=== PATIENT | male | born 1950 | race Caucasian/White ===

== ENCOUNTER 2020-11-06 10:21 | Outpatient (REF) | payer OTHER, SELFPAY ==
[2020-11-06 14:09] LABS: Alanine Aminotransferase 34 U/L (0-40); Albumin Level 4.3 g/dL (3.5-5.0); Alkaline Phosphatase 61 U/L (39-117); Anion Gap 15 (12-20); Aspartate Amino Transferase 24 U/L (5-37); Bilirubin Total 0.5 mg/dL (0.0-1.0); Blood Urea Nitrogen 15 mg/dL (9-16); Calcium 9.2 mg/dL (8.4-10.2); Carbon Dioxide 27 mmol/L (22-29); Chloride 98 mmol/L (96-108); Cholesterol 160 mg/dL; Estimated Glomerular Filt Rate > 60; Glucose Fasting 117 mg/dL (60-99); HDL Cholesterol 44 mg/dL; LDL Cholesterol Calculated 90 mg/dl; Sodium 135 mmol/L (135-145); Total Protein 6.6 g/dL (6.5-8.0); Triglycerides 132 mg/dL
== END 2020-11-06 10:22 | disposition home or self-care (01) ==
LOC: HO.WFDLDS 10:21
PROVIDERS: Visit Provider Internal Medicine
DX: E78.5 Hyperlipidemia, unspecified (principal); I10 Essential (primary) hypertension
CPT/HCPCS: 36415; 80053; 80061

== ENCOUNTER 2021-08-21 09:48 | Outpatient (REF) | payer OTHER, SELFPAY ==
[2021-08-21 11:57] LABS: Estimated Average Glucose 134 mg/dL; Hemoglobin A1c % 6.3 %
[2021-08-21 12:00] LABS: Hemoglobin 13.7 g/dl (14.0-18.0); Mean Corpuscular HGB Conc 33.4 g/dl (31.0-36.0); Mean Corpuscular Hemoglobin 28.6 pg (27.0-33.0); Mean Corpuscular Volume 85.6 fL (80.0-98.0); Platelet Count 205 X10*3/uL (160-400); Red Blood Count 4.79 X10*6/uL (4.60-5.80); Red Cell Distribution Width 12.8 % (11.0-16.0); White Blood Count 6.5 X10*3/uL (4.8-10.8)
[2021-08-21 12:25] LABS: Alanine Aminotransferase 25 U/L (0-40); Albumin Level 4.3 g/dL (3.5-5.0); Alkaline Phosphatase 70 U/L (39-117); Anion Gap 13 (12-20); Aspartate Amino Transferase 21 U/L (5-37); Bilirubin Total 0.6 mg/dL (0.0-1.0); Blood Urea Nitrogen 15 mg/dL (9-16); Calcium 9.2 mg/dL (8.4-10.2); Carbon Dioxide 28 mmol/L (22-29); Chloride 101 mmol/L (96-108); Cholesterol 161 mg/dL; Estimated Glomerular Filt Rate > 60; Glucose Fasting 140 mg/dL (60-99); HDL Cholesterol 42 mg/dL; LDL Cholesterol Calculated 90 mg/dl; Potassium 4.4 mmol/L (3.3-5.1); Sodium 138 mmol/L (135-145); Total Protein 6.6 g/dL (6.5-8.0); Triglycerides 148 mg/dL
[2021-08-21 12:34] LABS: Prostate Specific Antigen Scr 0.17 ng/mL (<0.05-4.0); TSH reflex Free T4 0.69 uIU/mL (0.32-4.0)
== END 2021-08-21 09:49 | disposition home or self-care (01) ==
LOC: HO.WFDLDS 09:48
PROVIDERS: Visit Provider Physician Assistant
DX: Z12.5 Encounter for screening for malignant neoplasm of prostate (principal); I10 Essential (primary) hypertension; E78.5 Hyperlipidemia, unspecified
CPT/HCPCS: 36415; 80053; 80061; 83036; 84153; 84443; 85027

== ENCOUNTER 2021-10-01 15:17 | Outpatient (REF) | payer OTHER, SELFPAY ==
[2021-10-01 15:41] LABS: Binax Internal Control QC Valid; Binax Now Covid-19 Ag Negative (Negative)
[2021-10-02 09:32] LABS: Lyme Abs Screen <0.90 index
== END 2021-10-01 15:18 | disposition home or self-care (01) ==
LOC: HO.HMGCLDS 15:17
PROVIDERS: PCP Physician Assistant; Visit Provider Physician Assistant
DX: Z20.822 Contact with and (suspected) exposure to COVID-19 (principal); R52 Pain, unspecified
CPT/HCPCS: 86617; 86618; 87811; C9803

== ENCOUNTER 2022-12-10 13:12 | Outpatient (AMB) | payer OTHER, SELFPAY ==
--- NOTE | 2022-12-10 13:20 | MHC.PC.OV ---
Vital Signs 12/10/22 13:32 12/10/22 13:33 Height 5 ft 7 in Weight 165 lb BMI 25.8 BP 204/90 H 134/80 Blood Pressure Location Lt brachial Rt brachial Position Sitting Sitting Respiration 17 Pulse 100 Pulse Source Pulse Oximeter Pulse Oximetry (%) 97 Oxygen Delivery Method Room Air Intake Visit Reasons: PE Intake Note: Patient is here today for a physical. Organizational Development Specialist Required: No Accompanied by: Self / Same As Patient Allergies No Known Allergies Allergy (Verified 12/10/22 13:35) Medication List - Last Reconciled 12/10/22 by Ranjan Dueñas PA-C alprazolam 0.5 mg PO TID diclofenac sodium 75 mg PO BID fluorouracil 5% 1 appl topical BID lisinopril 30 mg PO DAILY 90 days lorazepam 1 mg PO Q8H 30 days paroxetine HCl 20 mg PO QAM simvastatin 20 mg PO BEDTIME zolpidem 10 mg PO BEDTIME 30 days Tobacco use date assessed: 12/10/22 Fall risk assessment: No Falls in past year Last assessed Fall Risk: 12/10/22 Dental Screening Dental Screen Date: 12/10/22 Did you have a dental visit in the last 12 months?: No Did you have a dental problem in the last 6 months where you did not have access to dental care?: No Was dental information given to patient?: Patient declined HPI PE HPI Details Peter is a 72 y/o M here today for a annual physical.? Pmhx significant for HTN,? HLD, YIN. Concerns--> blood pressure discrepancy between arms. Elevated blood pressure readings noted and left arm as compared to right arm. He otherwise is asymptomatic without any swelling, pain or discoloration and left arm. --> advised on getting duplex arterial ultrasound of the left arm though patient would like to hold off on this for now. .. ?HTN: reports he has white coat HTN while in? the office, he does not regularly monitor his blood pressure at home. Blood pressure over right arm acceptable--> 130/80. ?.. ?Impaired glucose? metabolism: Patient has made drastic lifestyle modifications and has lost a significant amount of weight since last office visit. ?.. 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 ? Takes lorazepam and paxil which he reports is helping his? anxiety tremendously. ?.. ?HLD: Has been complaint with his Statin without? any side effects.? Most recent lipid panel acceptable with LDL below 100 .. Colon cancer screening: Cologuard done in 2021 was positive- to be referred to GI for colonoscopy .. Vaccines: Up-to-date with COVID vaccine, up-to-date with tetanus, pneumonia vaccines. Considering the shingles vaccine. [facility] Surgical History History of surgery History of thumb surgery Family History Father No problems noted. Mother No problems noted. Sister In good health Social History Housing: House Alcohol intake: never Patient Tobacco Use Status: Never used Tobacco e-Cigarette/Vaping Use: Never Used Second Hand Smoke Exposure: No service: Yes Current occupational status: retired Cognitive needs: No Hearing needs: No Vision needs: Yes Questionnaire PHQ-9 Over the last 2 weeks, how often have you been bothered by any of the following problems? 1. Little interest or pleasure in doing things: not at all 2. Feeling down, depressed, or hopeless: not at all 3. Trouble falling or staying asleep, or sleeping too much: not at all 4. Feeling tired or having little energy: not at all 5. Poor appetite or overeating: not at all 6. Feeling bad about yourself - or that you are a failure or have let yourself or your family down: not at all 7. Trouble concentrating on things, such as reading the newspaper or watching television: not at all 8. Moving or speaking so slowly that other people could have noticed. Or the opposite - being so fidgety or restless that you have been moving around a lot more than usual: not at all 9. Thoughts that you would be better off or of hurting yourself in some way: not at all Total score: 0 Depression Screening Interpretation: Negative Depression Screening Done: Yes 25518 - PHQ-9 Billing: Yes Source: Developed by Drs. Jc Myles, Alyson Savage, Teodoro Hummel and colleagues, with an educational aris from [employer] Thrive Questionnaire Date Thrive assessed: 12/10/22 I am a: Patient What is your living situation today?: I have a steady place to live Within the past 12 months, did the food you bought not last and you didn't have the money to get more?: Never true Within the past 12 months, did you worry whether your food would run out before you got money to buy more?: Never true Do you have trouble paying for medicines?: No Do you have trouble getting transportation to medical appointments?: No Do you have trouble paying your heating and electricity bill?: No Do you have trouble taking care of your child, family member or friend?: No Do you have trouble with day-to-day activities such as bathing, preparing meals, shopping, managing finances, etc.?: No Are you currently unemployed and looking for a job?: No Are you interested in more education?: No Please select the resources that you would like help with: None Currently or been in a relationship where the following occur: no concerns reported AUDIT C Alcohol Use Questionnaire (AUDIT-C) 1. How often do you have a drink containing alcohol?: Never 2. How many drinks containing alcohol do you have on a typical day when you are drinking?: 1 or 2 (none) 3. How often do you have six or more drinks on one occasion?: Never Total Score: 0 YIN-7 AMB Questionnaire YIN-7 Date YIN - 7 assessed: 12/10/22 Feeling nervous, anxious, or on edge: 0 = Not at all Not being able to stop or control worryin = Not at all Worrying too much about different things: 0 = Not at all Trouble relaxin = Not at all Being so restless that it is hard to sit still: 0 = Not at all Becoming easily annoyed or irritable: 0 = Not at all Feeling afraid as if something awful might happen: 0 = Not at all Total YIN-7 score (0-4 normal; 5-9 mild; 10-14 moderate; 15-21 severe): 0 Source: Developed by Drs. Jc Myles, Alyson Savage, Teodoro Hummel and colleagues, with an educational aris from [employer] Review of Systems Const Denies body aches, Denies chills, Denies excessive sweating, Denies fatigue, Denies fever(s) and Denies headache(s) Eyes Denies blurry vision ENT Denies dysphagia, Denies vertigo, Denies dizziness, Denies headache(s), Denies hearing loss and Denies tinnitus Card Denies chest pain, Denies chest pain with activity, Denies syncope, Denies irregular heart rhythm and Denies dyspnea Resp Denies chest congestion, Denies cough, Denies hemoptysis, Denies dyspnea and Denies wheezing GI Denies abdominal pain, Denies melena, Denies hematochezia, Denies coffee ground emesis, Denies dysphagia, Denies diarrhea, Denies nausea and Denies vomiting Denies difficulty urinating, Denies dysuria, Denies urinary frequency, Denies urinary hesitancy and Denies urinary urgency Musc Denies arthralgias, Denies limited range of motion, Denies muscle cramps and Denies muscle weakness Skin/Breast Denies rash and Denies skin ulcer Neuro Denies Abnormal speech present, Denies confusion, Denies vertigo, Denies dizziness, Denies syncope, Denies headache(s), Denies memory loss and Denies seizure-like activity Psych Denies anxiety, Denies confusion, Denies depression, Denies memory loss, Denies panic attacks and Denies paranoia Endo Denies excessive sweating, Denies fatigue, Denies flushing, Denies polydipsia and Denies polyuria Aller/Immun Denies wheezing Physical exam (Primary Care) Vital Signs: Last Vital Signs Pulse 100 12/10/22 13:32 Resp 17 12/10/22 13:32 BP 134/80 12/10/22 13:33 Pulse Ox 97 12/10/22 13:32 Oxygen Delivery Method Room Air 12/10/22 13:32 BMI result Body Mass Index 25.8 Tobacco/Smoking Status: Tobacco use Status Tobacco use date assessed 12/10/22 12/10/22 13:36 Patient Tobacco Use Status Never used Tobacco 12/10/22 13:22 e-Cigarette/Vaping Use Never Used 12/10/22 13:22 PHQ-9: PHQ-9 Score PHQ-9: Total score 0 12/10/22 13:36 Depression Screening Interpretation: Negative Thrive Assessment: Date of Thrive Assessment Date Thrive assessed 12/10/22 12/10/22 13:36 Currently or been in a relationship where the following occur: no concerns reported Const General: cooperative, comfortable, no acute distress, alert and awake; No confusion Orientation/consciousness: oriented to person, oriented to place, patient oriented x3 and No confusion HENMT Head: Yes normocephalic Ears: external ears normal and TM's normal bilaterally Face and sinus: No sinus tenderness Mouth: Normal oral and palatal mucosa present and tongue normal Teeth and gingiva: dentition normal and gingiva normal Throat: Yes posterior oropharynx normal, Yes tonsils normal and Yes uvula midline Eyes Conjunctivae: conjunctivae normal Sclerae: sclerae normal Pupils: Equal, round and reactive pupils present EOM: EOMs intact bilaterally Direct Ophthalmoscopy: No no photophobia Neck Neck: Yes no lymphadenopathy, No tender and Yes no JVD Thyroid: Thyroid normal Carotids: no bruits Chest Chest palpation & inspection: no tenderness Resp Effort & Inspection: normal respiratory effort, no audible wheezes, not labored and no stridor Auscultation: no crackles, no rales, no rhonchi and no wheezes Cardio Jugular venous distension: no JVD Rate: regular rate, not bradycardic and not tachycardic Rhythm: regular rhythm Bruits: no carotid bruits Peripheral pulses: Peripheral pulses 2+ throughout GI Inspection: Yes normal to inspection, No abdominal wall ecchymosis and No visible herniation Palpation (GI): Soft to palpation, nontender, no guarding, not rigid and No hepatosplenomegaly present Auscultation: normoactive bowel sounds General: Yes no CVA tenderness Back/Spine/Pelvis Back: no CVA tenderness and No back tenderness Cervical Spine: cervical ROM normal Thoracic/Lumbar Spine: thoracic and lumbar spine normal to inspection, straight leg raise negative bilaterally, No thoraco-lumbar ROM limited and No lumbar spinal tenderness Skin Lesions: no lesions Rashes: no rashes Wounds: no wounds Neuro General: oriented to person, oriented to place, patient oriented x3, CN's II-XI intact bilaterally and No confusion Cranial nerves: Yes Equal, round and reactive pupils present and Yes Normal accommodation reflex present Cognition (Neuro): normal cognition Speech: No Abnormal speech present Gait exam (Neuro): Normal gait present Motor exam (neuro): 5/5 motor strength present throughout Extrem Right upper extremity: full ROM; no cyanosis Left upper extremity: full ROM; no cyanosis Right lower extremity: no edema Left lower extremity: no edema Psych Appearance: grossly normal Mental Status: mental status grossly normal Affect: normal affect Attitude: cooperative Thought process: Normal thought process present Office Procedures Flu Questionnaire Does the patient have a severe egg allergy?: No Does the patient have severe life threatening allergies?: No Does the patient have a fever or illness today?: No Has the patient ever had Guillain-[place] Syndrome?: No Has the patient ever had any past reaction to a flu shot?: No Immunizations flu vacc [id number] 6mos up(PF) 60 mcg(15 mcgx4)/0.5 mL IM syringe Performing Provider: Ranjan Dueñas PA-C [facility] Administered by: FADI Mckenzie on 12/10/22 13:37 Dose Route Admin Location Dispensed Lot Number Expiration Date NDC Accountancy Professor 0.5 mL IM Left Deltoid 0.5 mL [id number] 09/07/23 12754-378-11 Detectent VIS Given Date VIS Provided VIS Publication Date 12/10/22 Single Vaccine 20 Eligibility Eligibility Date Funding Source Not [facility] Eligible 12/10/22 Private Assessment and Plan Assessment & Plan (1) Annual physical exam: Code(s): Z00.00 - Encounter for general adult medical examination without abnormal findings (2) HTN (hypertension): Code(s): I10 - Essential (primary) hypertension Qualifiers: Hypertension type: primary hypertension Qualified Code(s): I10 - Essential (primary) hypertension Plan: Patient's blood pressure elevated today in office in his left arm, right arm normal pressure. Advised we should due to flex arterial ultrasound his left upper extremity to evaluate for arterial stenosis though he would like to hold off on this for now. Patient asymptomatic without any headaches, chest discomfort or shortness of breath. (3) HLD (hyperlipidemia): Code(s): E78.5 - Hyperlipidemia, unspecified Qualifiers: Hyperlipidemia type: mixed hyperlipidemia Qualified Code(s): E78.2 - Mixed hyperlipidemia Plan: Patient's fasting lipids acceptable. Will continue him on current dose of statin therapy. Goal LDL to be below 130. (4) YIN (generalized anxiety disorder): Code(s): F41.1 - Generalized anxiety disorder Plan: Patient does suffer from moderate to severe anxiety. He reports his current medications helped tremendously on reducing his anxiety. We did discuss the habit-forming nature benzodiazepines and patient does understand. (5) Impaired fasting glucose: Code(s): R73.01 - Impaired fasting glucose Plan: Has made lifestyle modifications and has lost significant amount of weight since last office visit. Will recheck fasting blood sugar and A1c. (6) Positive colorectal cancer screening using Cologuard test: Code(s): R19.5 - Other fecal abnormalities Plan: Patient's Cologuard test positive in the fall of 2021. He is now willing to be referred to GI for colonoscopy. Orders: Orders AMB Hemoglobin A1c Today R73.01 - Impaired fasting glucose Lipid Panel Today E78.2 - Mixed hyperlipidemia Prostate Specific Antigen Scr Today I10 - Essential (primary) hypertension, Z12.5 - Encounter for screening for malignant neoplasm of prostate Influenza [id number] Immunization Today Z23 - Encounter for immunization Microalbumin, Random (w Creat) Today I10 - Essential (primary) hypertension Comprehensive [place]. Panel Fast Today I10 - Essential (primary) hypertension Complete Blood Count no Diff Today I10 - Essential (primary) hypertension Referrals Gastroenterology Referral R19.5 - Other fecal abnormalities Medications: Changed From fluorouracil 5% 1 appl topical BID H16.139 - Photokeratitis, unspecified eye, I10 - Essential (primary) hypertension To fluorouracil 5% 1 appl topical BID 30 days 40 grams 2RF H16.139 - Photokeratitis, unspecified eye, I10 - Essential (primary) hypertension Refilled simvastatin 20 mg PO BEDTIME 90 tabs 2RF E78.5 - Hyperlipidemia, unspecified Coding Level of Care Code Est Pt Prev Care >65y(01267) Diagnoses Annual physical exam Z00.00 Primary hypertension I10 Hypertension type: primary hypertension Mixed hyperlipidemia E78.2 Hyperlipidemia type: mixed hyperlipidemia YIN (generalized anxiety disorder) F41.1 Impaired fasting glucose R73.01 Positive colorectal cancer screening using Cologuard test R19.5
[2022-12-10 13:32] VITALS: BP 204/90; PULSE 100; RESP 17; O2SAT 97; BMI 25.8
[2022-12-10 13:33] VITALS: BP 134/80
== END 2022-12-10 13:58 | disposition home or self-care (01) ==
PROVIDERS: Visit Provider Physician Assistant
DX: Z00.00 Encounter for general adult medical examination without abnormal findings (principal); I10 Essential (primary) hypertension; E78.2 Mixed hyperlipidemia; Z23 Encounter for immunization; F41.1 Generalized anxiety disorder; R73.01 Impaired fasting glucose; R19.5 Other fecal abnormalities
CPT/HCPCS: 90471; 90686; 99397

== ENCOUNTER 2023-10-27 12:12 | Emergency (ER) | payer BC, SELFPAY ==
[2023-10-27 13:06] VITALS: BP 154/82; PULSE 63; RESP 16; TEMP 36.9; O2SAT 98; BMI 25.3
--- NOTE | 2023-10-27 13:07 | ED_ITS ---
HPI - Nausea/Vomiting/Diarrhea General Chief complaint: Nausea/Vomiting/Diarrhea Stated complaint: Sick for 2 Wks Unable to Eat Drink Related Data Previous Rx's ?Medication ?Instructions ?Recorded fluorouracil 5 % topical cream 1 appl topical BID 30 days #40 12/10/22 grams diclofenac sodium 75 mg 75 mg PO BID #60 tabs 02/02/23 tablet,delayed release triamcinolone acetonide 0.1 % 1 appl topical DAILY 30 days #80 03/05/23 topical cream grams paroxetine HCl 20 mg tablet 20 mg PO QAM #90 tabs 04/03/23 lisinopril 30 mg tablet 30 mg PO DAILY 90 days #90 tabs 09/19/23 simvastatin 20 mg tablet 20 mg PO BEDTIME #90 tabs 09/19/23 lorazepam 1 mg tablet 1 mg PO Q8H 30 days #90 tabs 10/24/23 zolpidem 10 mg tablet 10 mg PO BEDTIME 30 days #30 tabs 10/24/23 Allergies Allergy/AdvReac Type Severity Reaction Status Date / Time No Known Allergies Allergy Verified 10/27/23 13:11 [facility] Past Medical History Surgical History History of surgery History of thumb surgery Family History Family History Father No problems noted. Mother No problems noted. Sister In good health Social History Social History Housing: House Alcohol intake: never Patient Tobacco Use Status: Never used Tobacco e-Cigarette/Vaping Use: Never Used Second Hand Smoke Exposure: No Advance Directives: No Advance Directives Information Provided: No service: Yes Current occupational status: retired Cognitive needs: No Hearing needs: No Vision needs: Yes Physical Exam 2 Vital Signs: Vital Signs: Last Vital Signs Temp 98.4 F 10/27/23 13:06 Pulse 63 10/27/23 13:06 Resp 16 10/27/23 13:06 BP 154/82 H 10/27/23 13:06 Pulse Ox 98 10/27/23 13:06 O2 Del Method Room Air 10/27/23 13:06 BMI result Body Mass Index 25.3 Course Course Course Narrative: This is a Rapid Medical Examination (RME) performed by Fely Membreno PA-C in triage. Full HPI, ROS, assessment and treatment plan per primary provider in the Main ED. 73 yo male with history of HTN, HLD, anxiety, who presenting to the ER for evaluation of N/V/D, weakness, and decreased PO intake for the last 4 days. He was sick with URI symptoms 2 weeks ago. Had 2-3 episodes of diarrhea yesterday and vomited once yesterday. He was sent into the ER for IV electrolytes from the walk in center. Mildly hypertensive in triage. No pain just c/o weakness. Exam with awake alert elderly male, no distress. his abd is soft and nontender. lungs are clear w/ RRR. Stable to go back to [facility] until treatment room available. Plan: labs, COVID test Medical Decision Making Lab Data 10/27/23 13:44 10/27/23 13:44 Labs: Lab Results 10/27/23 Range/Units 13:44 WBC 9.6 (4.8-10.8) X10*3/uL RBC 4.81 (4.60-5.80) X10*6/uL Hgb 14.3 (14.0-18.0) g/dl Hct 40.8 L (42.0-52.0) % MCV 84.8 (80.0-98.0) fL MCH 29.7 (27.0-33.0) pg MCHC 35.0 (31.0-36.0) g/dl RDW 12.9 (11.0-16.0) % Plt Count 229 (160-400) X10*3/uL MPV 9.3 L (9.4-12.4) fL Immature Gran % (Auto) 0.6 H (0.0-0.4) % Neut % (Auto) 65.9 (45-73) % Lymph % (Auto) 18.8 L (20-40) % [place] % (Auto) 11.1 H (2-11) % Eos % (Auto) 3.0 (0-4) % Baso % (Auto) 0.6 (0-2) % Lymph # (Auto) 1.8 (1.2-4.9) X10*3/uL [place] # (Auto) 1.1 (0.1-1.2) X10*3/uL Eos # (Auto) 0.3 (0.0-0.4) X10*3/uL Baso # (Auto) 0.1 (0.0-0.2) X10*3/uL Abs Immat Gran (auto) 0.06 H (0.00-0.03) X10*3/uL Absolute Neuts (auto) 6.3 (2.0-8.3) x10*3/uL Absolute Nucleated RBC 0.000 (0.0-0.012) X10*3/uL Nucleated RBC % (auto) 0.0 (0.0-0.2) /100WBC Sodium 139 (135-145) mmol/L Potassium 4.4 (3.3-5.1) mmol/L Chloride 106 (96-108) mmol/L Carbon Dioxide 24 (22-29) mmol/L Anion Gap 13 (12-20) BUN 19 H (9-16) mg/dL Creatinine 1.53 H (0.5-1.4) mg/dL Estim Creat Clear Calc 42.2 Estimated GFR 45 Random Glucose 114 (60-115) mg/dL Calcium 10.2 D (8.4-10.2) mg/dL Magnesium 2.1 (1.6-2.6) mg/dL Total Bilirubin 0.7 (0.0-1.0) mg/dL Direct Bilirubin 0.3 (0.0-0.5) mg/dL AST 18 (5-37) U/L ALT 20 (0-40) U/L Alkaline Phosphatase 65 (39-117) U/L Total Protein 7.1 (6.5-8.0) g/dL Albumin 4.5 (3.5-5.0) g/dL Lipase 43 (8-78) U/L COVID-19 ([facility]) Negative (Negative) COVID-19 Clin Com See Note Discharge Plan Discharge Clinical Impression: Nausea & vomiting Qualifiers: Vomiting type: unspecified Qualified Code(s): R11.2 - Nausea with vomiting, unspecified Patient Disposition: Left W/O Completing Treatment Prescriptions: No Action diclofenac sodium 75 mg tablet,delayed release (DR/EC) 75 mg PO BID Qty: 60 3RF triamcinolone acetonide 0.1 % cream 1 appl topical DAILY 30 Days Qty: 80 1RF paroxetine HCl 20 mg tablet 20 mg PO QAM Qty: 90 3RF lisinopril 30 mg tablet 30 mg PO DAILY 90 Days Qty: 90 2RF simvastatin 20 mg tablet 20 mg PO BEDTIME Qty: 90 2RF zolpidem 10 mg tablet 10 mg PO BEDTIME 30 Days Qty: 30 3RF lorazepam 1 mg tablet 1 mg PO Q8H 30 Days Qty: 90 3RF Hold Instructions: Doctor's Order fluorouracil 5 % cream 1 appl topical BID 30 Days Qty: 40 2RF Discharge Date/Time: 10/27/23 20:45
[2023-10-27 13:48] LABS: MANUAL DIFF FLAG NO
[2023-10-27 13:50] LABS: Basophils Absolute Auto 0.1 X10*3/uL (0.0-0.2); Basophils Percent Auto 0.6 % (0-2); Eosinophils Absolute Auto 0.3 X10*3/uL (0.0-0.4); Hematocrit 40.8 % (42.0-52.0); Hemoglobin 14.3 g/dl (14.0-18.0); Imm Gran Abs Auto 0.06 X10*3/uL (0.00-0.03); Imm Gran Pct Auto 0.6 % (0.0-0.4); Lymphocytes Absolute Auto 1.8 X10*3/uL (1.2-4.9); Lymphocytes Percent Auto 18.8 % (20-40); Mean Corpuscular Hemoglobin 29.7 pg (27.0-33.0); Mean Corpuscular Volume 84.8 fL (80.0-98.0); Mean Platelet Volume 9.3 fL (9.4-12.4); Monocytes Absolute Auto 1.1 X10*3/uL (0.1-1.2); Monocytes Percent Auto 11.1 % (2-11); Neutrophils Absolute Auto 6.3 x10*3/uL (2.0-8.3); Neutrophils Percent Auto 65.9 % (45-73); Platelet Count 229 X10*3/uL (160-400); Red Blood Count 4.81 X10*6/uL (4.60-5.80); Red Cell Distribution Width 12.9 % (11.0-16.0); White Blood Count 9.6 X10*3/uL (4.8-10.8)
[2023-10-27 14:03] LABS: COVID-19 Test Negative (Negative); IDNOW Serial# 08D9AD1C
[2023-10-27 14:04] LABS: Alanine Aminotransferase 20 U/L (0-40); Albumin Level 4.5 g/dL (3.5-5.0); Alkaline Phosphatase 65 U/L (39-117); Anion Gap 13 (12-20); Aspartate Amino Transferase 18 U/L (5-37); Bilirubin Direct 0.3 mg/dL (0.0-0.5); Bilirubin Total 0.7 mg/dL (0.0-1.0); Blood Urea Nitrogen 19 mg/dL (9-16); Calcium 10.2 mg/dL (8.4-10.2); Carbon Dioxide 24 mmol/L (22-29); Chloride 106 mmol/L (96-108); Creatinine Clr Calc Pharmacy 42.2; Estimated Glomerular Filt Rate 45; Glucose Random 114 mg/dL (60-115); Lipase 43 U/L (8-78); Magnesium 2.1 mg/dL (1.6-2.6); Potassium 4.4 mmol/L (3.3-5.1); Sodium 139 mmol/L (135-145); Total Protein 7.1 g/dL (6.5-8.0)
== END 2023-10-27 20:45 | disposition left against medical advice (07) ==
LOC: HO.ED 20:29
PROVIDERS: Physician Assistant; Emergency Provider Emergency Medicine; PCP Physician Assistant
DX: R11.2 Nausea with vomiting, unspecified (principal); R53.1 Weakness; Z11.52 Encounter for screening for COVID-19; I10 Essential (primary) hypertension; E78.5 Hyperlipidemia, unspecified; Z53.21 Procedure and treatment not carried out due to patient leaving prior to being seen by health care provider; Z79.899 Other long term (current) drug therapy; Z79.02 Long term (current) use of antithrombotics/antiplatelets
CPT/HCPCS: 36415; 80048; 80076; 83690; 83735; 85025; 87635; 99281; 99283

== ENCOUNTER 2023-11-06 12:24 | Outpatient (REF) | payer SELFPAY ==
[2023-11-06 13:16] LABS: MANUAL DIFF FLAG NO
[2023-11-06 13:22] LABS: Basophils Percent Auto 0.7 % (0-2); Eosinophils Percent Auto 1.1 % (0-4); Hematocrit 41.5 % (42.0-52.0); Hemoglobin 13.6 g/dl (14.0-18.0); Imm Gran Abs Auto 0.04 X10*3/uL (0.00-0.03); Imm Gran Pct Auto 0.5 % (0.0-0.4); Lymphocytes Absolute Auto 1.4 X10*3/uL (1.2-4.9); Lymphocytes Percent Auto 17.1 % (20-40); Mean Corpuscular HGB Conc 32.8 g/dl (31.0-36.0); Mean Corpuscular Hemoglobin 28.6 pg (27.0-33.0); Mean Corpuscular Volume 87.4 fL (80.0-98.0); Mean Platelet Volume 9.9 fL (9.4-12.4); Monocytes Absolute Auto 0.7 X10*3/uL (0.1-1.2); Neutrophils Absolute Auto 5.8 x10*3/uL (2.0-8.3); Neutrophils Percent Auto 71.6 % (45-73); Platelet Count 280 X10*3/uL (160-400); Red Blood Count 4.75 X10*6/uL (4.60-5.80); Red Cell Distribution Width 13.2 % (11.0-16.0); White Blood Count 8.1 X10*3/uL (4.8-10.8)
[2023-11-06 13:23] LABS: Basophils Absolute Auto 0.1 X10*3/uL (0.0-0.2); Eosinophils Absolute Auto 0.1 X10*3/uL (0.0-0.4)
[2023-11-06 13:33] LABS: Alanine Aminotransferase 24 U/L (0-40); Albumin Level 4.5 g/dL (3.5-5.0); Alkaline Phosphatase 62 U/L (39-117); Anion Gap 16 (12-20); Aspartate Amino Transferase 20 U/L (5-37); Bilirubin Direct 0.2 mg/dL (0.0-0.5); Bilirubin Total 0.4 mg/dL (0.0-1.0); Blood Urea Nitrogen 14 mg/dL (9-16); Calcium 10.1 mg/dL (8.4-10.2); Carbon Dioxide 22 mmol/L (22-29); Chloride 107 mmol/L (96-108); Estimated Glomerular Filt Rate > 60; Glucose Random 112 mg/dL (60-115); Potassium 3.6 mmol/L (3.3-5.1); Sodium 141 mmol/L (135-145); Total Protein 7.2 g/dL (6.5-8.0)
[2023-11-06 14:05] LABS: Estimated Average Glucose 120 mg/dL; Hemoglobin A1c % 5.8 % (<6.0)
[2023-11-07 09:23] LABS: Hepatitis A Antibody IgG Nonreactive (Nonreactive)
[2023-11-07 09:34] LABS: HBS Num1 0.67 mIU/mL (0-7.99); HBc Num1 0.07 S/CO (0.00-0.79); HBsAGNum1 0.27 S/CO (0.00-0.99); HIV Num 1 11.97 S/CO (0.00-0.99); Hepatitis B Core Antibody Nonreactive (Nonreactive); Hepatitis B Surface Antigen Negative (Negative); ~HepC Num1 0.05 S/CO (0.00-0.79); ~Hepatitis B Surface Antibody NONREACTIVE (Nonreactive); ~Hepatitis C Antibody Nonreactive (Nonreactive)
[2023-11-07 10:50] LABS: HIV AB/AG Nonreactive (Nonreactive); HIV Num 2 0.05 S/CO; HIV Num 3 0.05 S/CO
[2023-11-08 14:59] LABS: Syphilis Screen Nonreactive (Nonreactive)
[2023-11-08 22:04] LABS: TS Negative Control Passed; TS Panel A 0; TS Panel B 0; TS Positive Control Passed; TSpotTB Negative (Negative)
== END 2023-11-06 12:25 | disposition home or self-care (01) ==
LOC: HO.HHCL 12:24
PROVIDERS: Visit Provider Family Medicine
DX: F11.20 Opioid dependence, uncomplicated (principal); Z13.1 Encounter for screening for diabetes mellitus
CPT/HCPCS: 36415; 80053; 82248; 83036; 85025; 86481; 86704; 86706; 86708; 86780; 86803; 87340; 87389

== ENCOUNTER 2023-12-25 13:17 | Outpatient (AMB) | payer BC, SELFPAY ==
--- NOTE | 2023-12-25 13:28 | MHC.PC.OV ---
Vital Signs 12/25/23 13:32 12/25/23 13:33 Height 5 ft 8 in Weight 161 lb 8 oz BMI 24.6 BP 92/66 152/74 H Blood Pressure Location Rt brachial Lt brachial Position Sitting Sitting Pulse 66 Pulse Source Pulse Oximeter Pulse Oximetry (%) 98 Oxygen Delivery Method Room Air Intake Visit Reasons: Physical Intake Note: Patient is here today for a physical. Claims Examiner Required: No Accompanied by: Self / Same As Patient Allergies No Known Allergies Allergy (Verified 12/25/23 13:36) Medication List - Last Reconciled 12/25/23 by Ranjan Dueñas PA-C buprenorphine-naloxone 2-0.5 mg 1 film sublingual BID diclofenac sodium 75 mg PO BID fluorouracil 5% 1 appl topical BID 30 days lisinopril 30 mg PO DAILY 90 days lorazepam 1 mg PO Q8H 30 days paroxetine HCl 20 mg PO QAM simvastatin 20 mg PO BEDTIME triamcinolone acetonide 0.1% 1 appl topical DAILY 30 days zolpidem 10 mg PO BEDTIME 30 days Tobacco use date assessed: 12/25/23 Fall risk assessment: No Falls in past year Last assessed Fall Risk: 12/25/23 Dental Screening Dental Screen Date: 12/25/23 Did you have a dental visit in the last 12 months?: Yes Did you have a dental problem in the last 6 months where you did not have access to dental care?: No Was dental information given to patient?: Patient has dentist HPI Physical HPI Details Peter is a 73 y/o M here today for a annual physical.? Pmhx significant for HTN,? HLD, YIN. Concerns--> he admits that he had become dependent on opiates pills from a friend. Now on Suboxone and getting stabilize on this medication. .. ?HTN: reports he has white coat HTN while in? the office, he does not regularly monitor his blood pressure at home. Blood pressure over right arm acceptable--> 130/80. blood pressure discrepancy between arms. Elevated blood pressure readings noted and left arm as compared to right arm. He otherwise is asymptomatic without any swelling, pain or discoloration and left arm. --> advised on getting duplex arterial ultrasound of the left arm though patient would like to hold off on this for now. ?.. ?Impaired glucose? metabolism: Patient has made drastic lifestyle modifications and has lost a significant amount of weight since last office visit. ?.. 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 ? Takes lorazepam and paxil which he reports is helping his? anxiety tremendously. ?.. ?HLD: Has been complaint with his Statin without? any side effects.? Most recent lipid panel acceptable with LDL below 100 .. Colon cancer screening: Cologuard done in 2021 was positive- he wants to wait to be referred to Gastroenterology .. Vaccines: Up-to-date with COVID vaccine, up-to-date with tetanus, pneumonia vaccines. Considering the shingles vaccine. Laboratory Tests 08/21/21 11/06/23 09:55 12:27 Hgb 13.7 L 13.6 L Hct 41.5 L Fasting Glucose 140 H Hemoglobin A1c % 6.3 5.8 PFSH Surgical History History of surgery History of thumb surgery Family History Father No problems noted. Mother No problems noted. Sister In good health Social History Housing: House Alcohol intake: never Patient Tobacco Use Status: Never used Tobacco e-Cigarette/Vaping Use: Never Used Second Hand Smoke Exposure: No service: Yes Current occupational status: retired Cognitive needs: No Hearing needs: No Vision needs: Yes Questionnaire PHQ-9 Over the last 2 weeks, how often have you been bothered by any of the following problems? 1. Little interest or pleasure in doing things: not at all 2. Feeling down, depressed, or hopeless: not at all 3. Trouble falling or staying asleep, or sleeping too much: not at all 4. Feeling tired or having little energy: not at all 5. Poor appetite or overeating: not at all 6. Feeling bad about yourself - or that you are a failure or have let yourself or your family down: not at all 7. Trouble concentrating on things, such as reading the newspaper or watching television: not at all 8. Moving or speaking so slowly that other people could have noticed. Or the opposite - being so fidgety or restless that you have been moving around a lot more than usual: not at all 9. Thoughts that you would be better off or of hurting yourself in some way: not at all Total score: 0 Depression Screening Interpretation: Negative Depression Screening Done: Yes 46264 - PHQ-9 Billing: Yes Source: Developed by Drs. Jc Myles, Alyson Savage, Teodoro Hummel and colleagues, with an educational aris from [employer]. Thrive Questionnaire Date Thrive assessed: 12/25/23 I am a: Patient What is your living situation today?: I have a steady place to live Within the past 12 months, did the food you bought not last and you didn't have the money to get more?: Never true Within the past 12 months, did you worry whether your food would run out before you got money to buy more?: Never true Do you have trouble paying for medicines?: No Do you have trouble getting transportation to medical appointments?: No Do you have trouble paying your heating and electricity bill?: No Do you have trouble taking care of your child, family member or friend?: No Do you have trouble with day-to-day activities such as bathing, preparing meals, shopping, managing finances, etc.?: No Are you currently unemployed and looking for a job?: No Are you interested in more education?: No Please select the resources that you would like help with: None Currently or been in a relationship where the following occur: No concerns reported THRIVE Score: 0 AUDIT C Alcohol Use Questionnaire (AUDIT-C) 1. How often do you have a drink containing alcohol?: Never 2. How many drinks containing alcohol do you have on a typical day when you are drinking?: 1 or 2 (none) 3. How often do you have six or more drinks on one occasion?: Never Total Score: 0 YIN-7 AMB Questionnaire YIN-7 Date YIN - 7 assessed: 12/25/23 Feeling nervous, anxious, or on edge: 0 = Not at all Not being able to stop or control worryin = Not at all Worrying too much about different things: 0 = Not at all Trouble relaxin = Not at all Being so restless that it is hard to sit still: 0 = Not at all Becoming easily annoyed or irritable: 0 = Not at all Feeling afraid as if something awful might happen: 0 = Not at all Total YIN-7 score (0-4 normal; 5-9 mild; 10-14 moderate; 15-21 severe): 0 Source: Developed by Drs. Jc Myles, Alyson Savage, Teodoro Hummel and colleagues, with an educational aris from [employer]. YIN-7 Assessment Billing YIN-7 Assessment Tool: YIN-7 Assessment 16035 Review of Systems Const Denies body aches, Denies chills, Denies excessive sweating, Denies fatigue, Denies fever(s) and Denies headache(s) Eyes Denies blurry vision ENT Denies dysphagia, Denies vertigo, Denies dizziness, Denies headache(s), Denies hearing loss and Denies tinnitus Card Denies chest pain, Denies chest pain with activity, Denies syncope, Denies irregular heart rhythm and Denies dyspnea Resp Denies chest congestion, Denies cough, Denies hemoptysis, Denies dyspnea and Denies wheezing GI Denies abdominal pain, Denies melena, Denies hematochezia, Denies coffee ground emesis, Denies dysphagia, Denies diarrhea, Denies nausea and Denies vomiting Denies difficulty urinating, Denies dysuria, Denies urinary frequency, Denies urinary hesitancy and Denies urinary urgency Musc Denies arthralgias, Denies limited range of motion, Denies muscle cramps and Denies muscle weakness Skin/Breast Denies rash and Denies skin ulcer Neuro Denies Abnormal speech present, Denies confusion, Denies vertigo, Denies dizziness, Denies syncope, Denies headache(s), Denies memory loss and Denies seizure-like activity Psych Denies anxiety, Denies confusion, Denies depression, Denies memory loss, Denies panic attacks and Denies paranoia Endo Denies excessive sweating, Denies fatigue, Denies flushing, Denies polydipsia and Denies polyuria Aller/Immun Denies wheezing Physical exam (Primary Care) Vital Signs: Last Vital Signs Pulse 66 12/25/23 13:32 BP 92/66 12/25/23 13:32 Pulse Ox 98 12/25/23 13:32 Oxygen Delivery Method Room Air 12/25/23 13:32 BMI result Body Mass Index 24.6 Tobacco/Smoking Status: Tobacco use Status Tobacco use date assessed 12/10/22 12/25/23 13:28 Patient Tobacco Use Status Never used Tobacco 12/25/23 13:28 e-Cigarette/Vaping Use Never Used 12/25/23 13:28 Depression Screening Interpretation: Negative Thrive Assessment: Date of Thrive Assessment Date Thrive assessed 12/10/22 12/25/23 13:28 Currently or been in a relationship where the following occur: No concerns reported Const General: cooperative, comfortable, no acute distress, alert and awake; No confusion Orientation/consciousness: oriented to person, oriented to place, patient oriented x3 and No confusion HENMT Head: Yes normocephalic Ears: external ears normal and TM's normal bilaterally Face and sinus: No sinus tenderness Mouth: Normal oral and palatal mucosa present and tongue normal Teeth and gingiva: dentition normal and gingiva normal Throat: Yes posterior oropharynx normal, Yes tonsils normal and Yes uvula midline Eyes Conjunctivae: conjunctivae normal Sclerae: sclerae normal Pupils: Equal, round and reactive pupils present EOM: EOMs intact bilaterally Direct Ophthalmoscopy: No no photophobia Neck Neck: Yes no lymphadenopathy, No tender and Yes no JVD Thyroid: Thyroid normal Carotids: no bruits Chest Chest palpation & inspection: no tenderness Resp Effort & Inspection: normal respiratory effort, no audible wheezes, not labored and no stridor Auscultation: no crackles, no rales, no rhonchi and no wheezes Cardio Jugular venous distension: no JVD Rate: regular rate, not bradycardic and not tachycardic Rhythm: regular rhythm Bruits: no carotid bruits Peripheral pulses: Peripheral pulses 2+ throughout GI Inspection: Yes normal to inspection, No abdominal wall ecchymosis and No visible herniation Palpation (GI): Soft to palpation, nontender, no guarding, not rigid and No hepatosplenomegaly present Auscultation: normoactive bowel sounds General: Yes no CVA tenderness Back/Spine/Pelvis Back: no CVA tenderness and No back tenderness Cervical Spine: cervical ROM normal Thoracic/Lumbar Spine: thoracic and lumbar spine normal to inspection, straight leg raise negative bilaterally, No thoraco-lumbar ROM limited and No lumbar spinal tenderness Skin Lesions: no lesions Rashes: no rashes Wounds: no wounds Neuro General: oriented to person, oriented to place, patient oriented x3, CN's II-XI intact bilaterally and No confusion Cranial nerves: Yes Equal, round and reactive pupils present and Yes Normal accommodation reflex present Cognition (Neuro): normal cognition Speech: No Abnormal speech present Gait exam (Neuro): Normal gait present Motor exam (neuro): 5/5 motor strength present throughout Extrem Right upper extremity: full ROM; no cyanosis Left upper extremity: full ROM; no cyanosis Right lower extremity: no edema Left lower extremity: no edema Psych Appearance: grossly normal Mental Status: mental status grossly normal Affect: normal affect Attitude: cooperative Thought process: Normal thought process present Office Procedures Flu Questionnaire Does the patient have a severe egg allergy?: No Immunizations Fluarix Triv [id number] (PF) 45 mcg (15 mcg x 3)/0.5 mL IM syringe Performing Provider: Ranjan Dueñas PA-C [facility] Documented (not given) by: FADI Mckenzie on 12/25/23 13:35 Reason Not Given: Received Previously Coding Level of Care Code Est Pt Prev Care >65y(85412) Diagnoses Annual physical exam Z00.00 Primary hypertension I10 Hypertension type: primary hypertension Mixed hyperlipidemia E78.2 Hyperlipidemia type: mixed hyperlipidemia Impaired fasting glucose R73.01 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 Substance use status: in remission Positive colorectal cancer screening using Cologuard test R19.5 Additional Codes YIN-7 Assessment Billing - YIN-7 Assessment Tool: YIN-7 Assessment 55909 ([id number]) Assessment & Plan Assessment & Plan (1) Annual physical exam: Code(s): Z00.00 - Encounter for general adult medical examination without abnormal findings Category: Medical Plan: As per HPI (2) HTN (hypertension): Code(s): I10 - Essential (primary) hypertension Category: Medical Qualifiers: Hypertension type: primary hypertension Qualified Code(s): I10 - Essential (primary) hypertension Plan: Patient's blood pressure on the low side today in office. Though on right arm seems to be slightly elevated. We did discuss perhaps doing a arterial ultrasound of the upper extremity evaluate for stenosis though patient declines. For now will continue on lisinopril 30 mg (3) HLD (hyperlipidemia): Code(s): E78.5 - Hyperlipidemia, unspecified Category: Medical Qualifiers: Hyperlipidemia type: mixed hyperlipidemia Qualified Code(s): E78.2 - Mixed hyperlipidemia Plan: Patient's most recent the panels have been stable. He continues with simvastatin 20 mg without any side effect. Goal LDL is to remain below 130 (4) Impaired fasting glucose: Code(s): R73.01 - Impaired fasting glucose Category: Medical Plan: Patient has a history of elevated fasting blood sugar. Most recent A1c of 5.8. He will continue on lifestyle and dietary modifications to reduce his fasting blood sugars (5) Opiate dependence: Code(s): F11.20 - Opioid dependence, uncomplicated Category: Medical Qualifiers: Substance use status: in remission Qualified Code(s): F11.21 - Opioid dependence, in remission Plan: Followed by a Suboxone clinic and is still getting stabilized on a regular dose of Suboxone (6) Positive colorectal cancer screening using Cologuard test: Code(s): R19.5 - Other fecal abnormalities Category: Medical Plan: Peter is aware of his positive Cologuard test. He was still trying to hold off on a colonoscopy she has been trying to stabilize medication. He will call for referral to gastroenterology for colonoscopy. Orders: Orders Influenza [id number] Immunization Today Z23 - Encounter for immunization Lipid Panel Today E78.2 - Mixed hyperlipidemia Hemoglobin A1c Today R73.01 - Impaired fasting glucose Comprehensive Tracy. Panel Fast Today R73.01 - Impaired fasting glucose Microalbumin, Random (w Creat) Today I10 - Essential (primary) hypertension Complete Blood Count no Diff Today E78.2 - Mixed hyperlipidemia Patient Instructions: Goal: Blood pressure to be below 33461, LDL to remain below 130 Barriers: Adherence to physical activity and healthy eating habits
[2023-12-25 13:32] VITALS: BP 92/66; PULSE 66; O2SAT 98; BMI 24.6
[2023-12-25 13:33] VITALS: BP 152/74
== END 2023-12-25 13:54 | disposition home or self-care (01) ==
PROVIDERS: PCP Physician Assistant; Visit Provider Physician Assistant
DX: Z00.00 Encounter for general adult medical examination without abnormal findings (principal); I10 Essential (primary) hypertension; E78.2 Mixed hyperlipidemia; R73.01 Impaired fasting glucose; F11.21 Opioid dependence, in remission; R19.5 Other fecal abnormalities

== ENCOUNTER → 2023-12-25 13:17 | Outpatient (BNVA) | payer BC, SELFPAY | PROVIDERS: PCP Physician Assistant; Visit Provider Physician Assistant | DX: Z00.00 Encounter for general adult medical examination without abnormal findings (principal); I10 Essential (primary) hypertension; E78.2 Mixed hyperlipidemia; R73.01 Impaired fasting glucose; R19.5 Other fecal abnormalities; F11.21 Opioid dependence, in remission; Z79.899 Other long term (current) drug therapy | CPT/HCPCS: 90471; 96127 ==

== ENCOUNTER 2024-04-26 12:49 | Outpatient (AMB) | payer BC, SELFPAY ==
--- OUTSIDE RECORDS SUMMARY | 2024-04-26 12:50 | XMS_ITS | Encounter Summary ---
Author Organization [employer] Address [address] [facility] [address] [place] [address] Care Team Providers Care Stone Engraver Name Role Phone Unavailable Primary Care Provider Unavailabl e Encounter Details Date Type Department Care Team (Latest Contact Info) Description 04/07/2024 Travel Social History Tobacco Use Types Packs/Day Years Used Date Smoking Tobacco: Never Assessed Sex and Gender Information Value Date Recorded Sex Assigned at Male 10/29/2023 10:50 AM EDT Legal Sex Male 10:43 AM EDT Gender Identity Male 10/29/2023 10:50 AM EDT Sexual Orientation Straight 10/29/2023 10 :50 AM EDT documented as of this encounter Plan of Treatment Upcoming Encounters Date Type Department Care Team (Late st Contact Info) Description 04/28/2024 10:00 AM EST Clinical Support [facility] [address] [place] [phone] Dennis Del Cid, YAEL [address] [place] [address] 05/19/2024 10:00 AM EDT Office Visit [facility] [address] [place] [phone] Viky Galvan MD [address] [place] [address] documented as of this encounter Visit Diagnoses Not on filedocumented in this encounter
--- OUTSIDE RECORDS SUMMARY | 2024-04-26 12:50 | XMS_ITS | Encounter Summary ---
Author Organization [employer] Address [address] [place] [address] [address] [place] [address] Care Team Providers Care Fire Fighter [employer] Name Role Phone Unavailable Primary Care Provider Unavailabl e Reason for Visit * Reason Onset Date Comments Med Refill 04/21/2024 Encounter Details Date Type Department Care Team (Late st Contact Info) Description 04/21/2024 Refill [facility] [address] [place] [phone] Dennis Del Cid, YAEL [address] [place] [phone] Uncomplicated opioid dependence (CMS/HCC) Social History Tobacco Use Types Packs/Day Years [...] Description 04/28/2024 10:00 AM EST Clinical Support [facility] [address] [place] [phone] Dennis Del Cid, RN [address] [place] [phone] 05/19/2024 10:00 AM EDT Office Visit [facility] [address] [place] [phone] Viky Galvan MD [address] [place] [phone] documented as of this encounter Visit Diagnoses Diagnosis Uncomplicated opioid dependence (CMS/HCC) documented in this encounter
--- OUTSIDE RECORDS SUMMARY | 2024-04-26 12:50 | XMS_ITS | Encounter Summary ---
Author Organization [employer] Address [address] [place] [address] [address] [place] [address] Care Team Providers Care Office Sweeper Name Role Phone Unavailable Primary Care Provider Unavailabl e Reason for Visit * Reason Onset Date Comments Med Refill 03/31/2024 Encounter Details Date Type Department Care Team (Late st Contact Info) Description 03/31/2024 Refill [facility] [address] [place] [phone] Dennis Del iCd, YAEL [address] [place] [phone] Uncomplicated opioid dependence (CMS/HCC) Social History Tobacco [...] Description 04/28/2024 10:00 AM EST Clinical Support [facility] [address] [place] [phone] Dennis Del Cid, RN [address] [place] [phone] 05/19/2024 10:00 AM EDT Office Visit [facility] [address] [place] [phone] Viky Galvan MD [address] [place] [phone] documented as of this encounter Visit Diagnoses Diagnosis Uncomplicated opioid dependence (CMS/HCC) documented in this encounter
--- OUTSIDE RECORDS SUMMARY | 2024-04-26 12:50 | XMS_ITS | Clinical Summary ---
Author Organization [employer] Address [address] [place] [address] Care Team Providers Care Flamer After Lasting Name Role Phone Unavailable Primary Care Provider Unavailabl e Allergies No known active allergies Medications naloxone (Narcan) 4 mg/0.1 mL nasal sprayIndicati ons:Opioid type dependence, continuous (CMS/HCC) Administer 1 spray (4 mg) into affected nostril(s) if needed for opioid reversal. May repeat every 2-3 minutes if needed, alternating nostrils, until medical assistance becomes available. 2 each 1 10/29/19 24 025 Active dicyclomine (Bentyl) 20 MG tablet Take 1 tablet by mouth every 6 hours as needed for abdominal pain 20 tablet 10/29/19 24 Active ondansetron (Zofran) 4 MG tablet Take 1 tablet (4 mg) by mouth every 8 (eight) hours if needed for nausea or vomiting. 30 tablet 10/29/19 24 Active lisinopril 30 MG tablet Take 30 mg by mouth Once per day. 09/08/19 24 Active fluorouracil (Efudex) 5 % cream 1 APPL TOPICALLY 2 TIMES A DAY FOR 30 DAYS 03/05/20 23 Active LORazepam (Ativan) 1 MG tablet TAKE 1 TABLET BY MOUTH EVERY 8 HOURS FOR 30 DAYS Active PARoxetine (Paxil) 20 MG tablet Take 20 mg by mouth in the morning. Active simvastatin (Zocor) 20 MG tablet Take 20 mg by mouth at bedtime. Active zolpidem (Ambien) 10 MG tablet Take 10 mg by mouth at bedtime. Active buprenorphine -naloxone (Suboxone) 2-0.5 MG per sublingual filmIndicatio ns:Uncomplica priscilla opioid dependence (CMS/HCC) Place 1 Film under the tongue 2 times daily for 21 days. 42 Film 04/21/19 25 025 Active buprenorphine -naloxone (Suboxone) 2-0.5 MG per sublingual filmIndicatio ns:Uncomplica priscilla opioid dependence (CMS/HCC) Place 1 Film under the tongue 2 times daily for 21 days. 42 Film 02/25/20 24 025 Discontinued(Re order (will not trigger notification to Pharmacy)) buprenorphine -naloxone (Suboxone) 2-0.5 MG per sublingual filmIndicatio ns:Uncomplica priscilla opioid dependence (CMS/HCC) Place 1 Film under the tongue 2 times daily for 21 days. 42 Film 04/01/19 25 025 Discontinued(Re order (will not trigger notification to Pharmacy)) Active Problems Problem Noted Date Diagnosed Date Opioid dependence 10/29/2023 Assessment & Plan (04/07/2024 5:13 AM EST): - stage of change: early remission / maintenance - Utox review: pos opi on 10/29/23 intake; pos bup and bzd since then - Overdose risk: intermediate to high. He uses alone, takes BZD, has PTSD, and age. - Continue current recovery support. Met with disaster recovery analyst, Al. - Continue current recovery effort. - Reviewed harm reduction and overdose prevention. Assessment & Plan (02/25/2024 5:58 AM EST): - stage of change: early remission / maintenance - Utox review: pos opi on 10/29/23 intake; pos bup and bzd since then - Overdose risk: intermediate to high. He uses alone, takes BZD, has PTSD, and age. - Continue current recovery support. Met with disaster recovery analyst, Al. - Continue current recovery effort. - Reviewed harm reduction and overdose prevention. - Induction on 10/29/23. Started with high dose, and developed adverse reaction. [place] better with lower dose, 4/1 mg daily. Assessment & Plan (02/11/2024 10:41 AM EST): - stage of change: action -> early remission / maintenance - Utox review: pos opi on 10/29/23 intake; pos bup and bzd since then - Overdose risk: intermediate to high. He uses alone, takes BZD, has PTSD, and age. - Continue current recovery support. Met with disaster recovery analyst, Al. - Continue current recovery effort. - Reviewed harm reduction and overdose prevention. - Induction on 10/29/23. Started with high dose, and developed adverse reaction. [place] better with lower dose, 4/1 mg daily. Assessment & Plan (01/07/2024 5:13 AM EDT): - stage of change: action -> early remission / maintenance - Utox review: pos opi on 10/29/23 intake; pos bup and bzd since then - Overdose risk: intermediate to high. He uses alone, takes BZD, has PTSD, and age. - Continue current recovery support. Met with disaster recovery analyst, Al. - Continue current recovery effort. - Reviewed harm reduction and overdose prevention. - Induction on 10/29/23. Started with high dose, and developed adverse reaction. [place] better with lower dose, 4/1 mg daily. Assessment & Plan (12/17/2023 11:24 AM EDT): - stage of change: action -> early remission / maintenance - Utox review: pos opi on 10/29/23 intake; pos bup and bzd since then - Overdose risk: intermediate to high. He uses alone, takes BZD, has PTSD, and age. - Continue current recovery support. Met with disaster recovery analyst, Al. - Continue current recovery effort. - Reviewed harm reduction and overdose prevention. - Induction on 10/29/23. Started with high dose, and developed adverse reaction. [place] better with lower dose, 4/1 mg daily. Assessment & Plan (11/26/2023 5:59 AM EDT): - stage of change: action - Utox review: - Overdose risk: intermediate to high. He uses alone, takes BZD, has PTSD, and age. - Continue current recovery support. Met with disaster recovery analyst, Al. - Continue current recovery effort. - Reviewed harm reduction and overdose prevention. - Induction on 10/29/23. Started with high dose, and developed adverse reaction. [place] better with lower dose, 4/1 mg daily. Assessment & Plan (10/29/2023 1:11 PM EDT): - stage of change: action - Utox review: - Overdose risk: intermediate to high. He uses alone, takes BZD, has PTSD, and age. - Continue current recovery support. Met with disaster recovery analystJoe, today. - Continue current recovery effort. - Reviewed harm reduction and overdose prevention. - Induction instruction for Day#1. 2 mg q2h up to 24 mg / day. Day#2 8 mg q8- 12h, up to 24 mg / day. - Rx Medications for withdrawal symptoms PTSD (post-traumatic stress disorder) 10/29/2023 Assessment & Plan (10/29/2023 1:07 PM EDT): - continue judicious use of lorazepam - discussed about concurrent use of bup and bzd; patient is aware Anxiety 10/29/2023 Assessment & Plan (10/29/2023 1:06 PM EDT): - continue paroxetine as prescribed by PCP Insomnia 10/29/2023 Assessment & Plan (10/29/2023 1:06 PM EDT): - continue judicious use of zolpidem Hypertension 10/29/2023 Assessment & Plan (10/29/2023 1:06 PM EDT): - continue lisinopril as prescribed by PCP Dyslipidemia 10/29/2023 Assessment & Plan (10/29/2023 1:05 PM EDT): - continue simvastatin as prescribed by PCP Encounters Date Type Department Care Team Description 04/21/2024 Refill [facility] [address] [place] [address] Dennis Del Cid RN Uncomplicated opioid dependence (CMS/HCC) 04/07/2024 10:30 AM EST Office Visit [facility] [address] [place] [address] Viky Galvan MD Uncomplicated opioid dependence (CMS/HCC) (Primary Dx) 04/07/2024 Travel 03/31/[address] [address] Dennis Del Cid RN Uncomplicated opioid dependence (CMS/HCC) 03/17/2024 9:45 AM EST Clinical Support [address] [address] Dennis Del Cid RN Uncomplicated opioid dependence (CMS/HCC) (Primary Dx) 03/17/2024 Travel 02/25/2024 10:00 AM EST Office Visit [address] [address] Viky Galvan MD Uncomplicated opioid dependence ([facility]/HCC) (Primary Dx) 02/25/[address] [address] Corina Muller RN Uncomplicated opioid dependence ([facility]/HCC) 02/25/2024 Travel 02/24/[address] [address] Bonnie Hernández, VOLUNTEER PATIENT REPRESENTATIVE insurance 02/18/[address] [address] Dennis Del Cid RN Uncomplicated opioid dependence ([facility]/HCC) 02/11/2024 10:15 AM EST Office Visit [address] [address] Viky Galvan MD Uncomplicated opioid dependence (CMS/HCC) (Primary Dx) 02/11/2024 Travel 02/02/2024 Refill [facility] [address] [place] [address] Dennis Del Cid RN Uncomplicated opioid dependence ([facility]/HCC) 01/28/2024 10:00 AM EST Clinical Support [address] [address] Corina Muller RN Uncomplicated opioid dependence (CMS/HCC) (Primary Dx) 01/28/2024 Travel from Last 3 Months Social History Tobacco Use Types Packs/Day Years Used Date Smoking Tobacco: Never Assessed Sex and Gender Information Value Date Recorded Sex Assigned at Male 10/29/2023 10:50 AM EDT Legal Sex Male 10:43 AM EDT Gender Identity Male 10/29/2023 10:50 AM EDT Sexual Orientation Straight 10/29/2023 10 :50 AM EDT Plan of Treatment Upcoming Encounters Date Type Department Care Team (Late st Contact Info) Description 04/28/2024 10:00 AM EST Clinical Support [facility] [address] [place] [phone] Dennis Del Cid, RN [address] [place] [address] 05/19/2024 10:00 AM EDT Office Visit [facility] [address] [place] [phone] Viky Galvan MD [address] [place] [address] Health Maintenance Due Date Last Done Comments CT Colonography 1951 Colonoscopy 1951 Depression Screening 1951 FIT 1951 FOBT 1951 Lipid Panel 1951 SDOH Screening 1950 Sigmoidoscopy 1951 Alcohol/Substance Use Screening 1963 Tobacco Screening 1963 Zoster Vaccines (1 of 2) 06/05/2001 DTaP/Tdap/Td Vaccines (1 - Tdap) 11/10/2020 11/09/2020 Diabetes: Hemoglobin A1C 11/05/2024 11/06/2023 Colorectal Cancer Screening 12/29/2024 FIT DNA/Cologuard 12/29/2024 12/29/2021, 09/17/2018 RSV Patients and Patients Aged 60 years or older (1 - 1-dose 75+ series) 06/05/2026 Pneumococcal Vaccine: 50+ Years Completed 03/12/2018, 12/01/2014 Hepatitis C Screening Completed 11/06/2023 COVID-19 Vaccine Completed 11/15/2023, 06/2022, 12/03/2021, Additional history exists Influenza Vaccine Completed 11/15/2023, , 12/03/2021, Additional history exists HIB Vaccines Aged Out No longer eligi ble based on patient's age to complete this topic HPV Vaccines Aged Out No longer eligi ble based on patient's age to complete this topic Hepatitis A Vaccines Aged Out No long er eligible based on patient's age to complete this topic Hepatitis B Vaccines Aged Out No long er eligible based on patient's age to complete this topic IPV Vaccines Aged Out No longer eligi ble based on patient's age to complete this topic Meningococcal Vaccine Aged Out No joan cira eligible based on patient's age to complete this topic RSV under 20 months Aged Out No longe r eligible based on patient's age to complete this topic Rotavirus Vaccines Aged Out No longer eligible based on patient's age to complete this topic Procedures Procedure Name Priority Date/Time Associated Diagnosis Comments POCT AJAY-14 URINE DRUG SCREEN Routine 04/07/2024 10:55 AM EST Uncomplicated opioid dependence (CMS/HCC) POCT AJAY-14 URINE DRUG SCREEN Routine 03/17/2024 9:46 AM EST Uncomplicated opioid dependence (CMS/HCC) POCT AJAY-14 URINE DRUG SCREEN Routine 02/25/2024 10:43 AM EST Uncomplicated opioid dependence (CMS/HCC) POCT AJAY-14 URINE DRUG SCREEN Routine 02/11/2024 10:14 AM EST Uncomplicated opioid dependence (CMS/HCC) POCT AJAY-14 URINE DRUG SCREEN Routine 01/28/2024 10:05 AM EST Uncomplicated opioid dependence (CMS/HCC) HEPATITIS C AB W/REFL TO HCV RNA, QN, PCR Routine 11/06/2023 12:27 PM EDT HEMOGLOBIN A1C Routine 11/06/2023 12:27 PM EDT from Last 3 Months or Most Recently Relevant to Health Maintenance Results * POCT AJAY-14 Urine Drug Screen (04/07/2024 10:55 AM EST) Only the most recent of5 resultswithin the time period is included. THC Negative Cocaine Screen, Urine Negative Opiate Screen, Urine Negative Methamphetamine Screen Urine Negative Amphetamine Screen, Urine Negative Benzodiazepines Screen, Urine Positive Barbiturate Screen, Urine Negative Methadone Screen, Urine Negative Buprenophine Screen, Urine Positive TCA, Urine Negative MDMA Urine Negative ng/mL Oxycodone Screen, Urine Negative Phencyclidine (PCP), Urine Negative Propoxyphene, Urine Negative Fentanyl, Urine Negative Urine Urine specimen obtained by clean catch procedure / Unknown 04/07/2024 10:55 AM EST Viky Galvan MD POINT OF CARE TEST ENTER/EDIT OR DERABLES Final Result * Hepatitis C Antibody with Reflex to HCV, RNA, Quantitative, Real-Time PCR (11/06/2023 12:27 PM EDT) Hepatitis C Antibody Nonreactive Nonreactive [facility] Comment:Antibodies to HCV no t detected; does not exclude early acuteHCV infection. 11/06/2023 12:2 7 PM EDT 11/06/2023 1:12 PM EDT Viky Galvan MD LAB BLOOD ORDERABLES Final Resul t [facility] [address] [place] [phone] * Hemoglobin A1c (11/06/2023 12:27 PM EDT) Hemoglobin A1c 5.8 <6.0 % [facility] Comment:Hemoglobin A1C Refer ence Range Adults: 4.8 - 6.0 % Non diabetic: < 6.0 % Goal: < 7.0 %Additional Action Suggested: > 8.0 %Note: Hemoglobin A1c results are invalid for patients with abnormal amounts of HbF. Blood transfusions may impact the HbA1c concentration in the patient sample. Estimated Average Glucose 120 mg/dL [facility] Comment:eAG = Estimated ave rage glucose which is %A1C expressed asaverage glucose, using the formula of the T7H-UhgyuoeNduecyv Glucose study (ADAG), Diabetes Care, Vol.31,#8,Oct. 2007 11/06/2023 12:2 7 PM EDT 11/06/2023 1:12 PM EDT us Viky Galvan MD LAB BLOOD ORDERABLES Final Resul t [facility] [address] [place] [address] [phone] from Last 3 Months or Most Recently Relevant to Health Maintenance Insurance [facility]
--- OUTSIDE RECORDS SUMMARY | 2024-04-26 12:50 | XMS_ITS | Encounter Summary ---
Author Organization [email or web address] Address [address] [facility] [address] [place] [address] Care Team Providers Care Economic Manager Name Role Phone Unavailable Primary Care Provider Unavailabl e Reason for Visit * Reason Comments OBAT F/U Encounter Details Date Type Department Care Team (Latest Contact Info) Description 04/07/2024 10:30 AM EST Office Visit [facility] [address] [place], [place] [phone] Viky Galvan MD [address] [place], [place] [phone] Uncomplicated opioid dependence (CMS/HCC) (Primary Dx) Social History Tobacco Use Types Packs/Day Years Used Date Smoking Tobacco: Never Assessed Sex and Gender Information Value Date Recorded Sex Assigned at Male 10/29/2023 10:50 AM EDT Legal Sex Male 10:43 AM EDT Gender Identity Male 10/29/2023 10:50 AM EDT Sexual Orientation Straight 10/29/2023 10 :50 AM EDT documented as of this encounter Progress Notes * Viky Galvan MD - 04/07/2024 10:30 AM EST Subjective Patient ID: Peter Sanz is a 73 y.o. male who presents for OBAT RV. HPI Peter Sanz is a 73 y.o. male who presents for OBAT RV. Patient on current Suboxone dose of 4/1 mg on a 3 week schedule. Patient has been in the program for 5 months. Intake date: 10/29/23. LFTs done 11/06/23. Patient declined behavioral health services 11/12/23. HAYDEN TONY reviewed by provider. Smoking status: quit 30 years ago. Hep A and B: not immune, declined vaccines 11/12/23 PCP: at [facility]: Ranjan Dueñas. Last seen 12/25/23. Last visit: 03/17/24 Utox bup bzo Peter here today for follow-up for opioid use disorder. No concerns with Suboxone, feeling well on current dose with no cravings, substance use, or adverse effects. He recently saw the eye doctor (in [place] but not at [facility]) and reports he cannot see with the new prescription. Encouraged him to return to the provider so they can evaluate. Increased to 3 weeks today. Pt prefers later morning appointments. Advised him he can come later aslong as he comes before noon on Wednesdays. Today: 04/07/24 Utox: bup, bzo (prescribed) He is pleased that he is gaining weight. 168 lbs today. 160 lbs when he started OBAT. He states hiscar did not start this morning, and had to do a jump start. He could not find a parking when he arrived, and had to borrow a quarter from [email or web address]) to park on the street. He is having eye surgery in April. Right eye cataract on 04/12/24 and left eye on 05/06/24. He is worried about having a surgery. Plan: Suboxone dosing schedule of 4/1 mg daily and management of side effects reviewed. Recovery support,harm reduction (including Narcan), and behavioral health attendance reviewed. Appointment for 3 weeks given. Patient expressed understanding and agreement with continuing plan of care. This information has been disclosed to you from records protected by federal confidentiality rules (42 CFR Part 2). The federal rules prohibit you from making any further disclosure of information inthis record that identifies a patient as having or having had a substance use disorder either directly, by reference to publicly available information, or through verification of such identification by another person unless further disclosure is expressly permitted by the written consent of the individual whose information is being disclosed or as otherwise permitted by (see2.3.1). The federal rules restrict any use of the information to investigate or prosecute with regard to a crime any patient with a substance use disorder, except as provided at 2.12??(5) and 2.65. Review of Systems Constitutional: Negative for activity change, appetite change, chills, fatigue and fever. Skin: Negative for wound. Objective Physical Exam Constitutional: General: He is not in acute distress. Appearance: Normal appearance. Pulmonary: Effort: Pulmonary effort is normal. Neurological: Mental Status: He is alert. Psychiatric: Mood and Affect: Mood normal. Behavior: Behavior normal. Office Visit on 04/07/2024 Component Date Value Ref Range Status THC 04/07/2024 Negative Final Cocaine Screen, Urine 04/07/2024 Negative Final Opiate Screen, Urine 04/07/2024 Negative Final Methamphetamine Screen Urine 04/07/2024 Negative Final Amphetamine Screen, Urine 04/07/2024 Negative Final Benzodiazepines Screen, Urine 04/07/2024 Positive Final Barbiturate Screen, Urine 04/07/2024 Negative Final Methadone Screen, Urine 04/07/2024 Negative Final Buprenophine Screen, Urine 04/07/2024 Positive Final TCA, Urine 04/07/2024 Negative Final MDMA Urine 04/07/2024 Negative ng/mL Final Oxycodone Screen, Urine 04/07/2024 Negative Final Phencyclidine (PCP), Urine 04/07/2024 Negative Final Propoxyphene, Urine 04/07/2024 Negative Final Fentanyl, Urine 04/07/2024 Negative Final Assessment/Plan Problem List Items Addressed This Visit Opioid dependence (CMS/HCC) - Primary - stage of change: early remission / maintenance - Utox review: pos opi on 10/29/23 intake; pos bup and bzd since then - Overdose risk: intermediate to high. He uses alone, takes BZD, has PTSD, and age. - Continue current recovery support. Met with pitching coachJoe. - Continue current recovery effort. - Reviewed harm reduction and overdose prevention. Relevant Orders POCT AJAY-14 Urine Drug Screen (Completed) documented in this encounter Miscellaneous Notes * Assessment & Plan Note - Viky Galvan MD - 04/06/2024 9:09 PM ESTAssociated Problem(s): Opioid dependence (CMS/HCC) - stage of change: early remission / maintenance - Utox review: pos opi on 10/29/23 intake; pos bup and bzd since then - Overdose risk: intermediate to high. He uses alone, takes BZD, has PTSD, and age. - Continue current recovery support. Met with pitching coach, Al. - Continue current recovery effort. - Reviewed harm reduction and overdose prevention. documented in this encounter Plan of Treatment Upcoming Encounters Date Type Department Care Team (Late st Contact Info) Description 04/28/2024 10:00 AM EST Clinical Support [address] [address] Dennis Del Cid RN [address] [place] [phone] 05/19/2024 10:00 AM EDT Office Visit [address] [address] Viky Galvan MD [address] [place] [phone] documented as of this encounter Procedures Procedure Name Priority Date/Time Associated Diagnosis Comments POCT AJAY-14 URINE DRUG SCREEN Routine 04/07/2024 10:55 AM EST Uncomplicated opioid dependence ([facility]) documented in this encounter Results * POCT AJAY-14 Urine Drug Screen (04/07/2024 10:55 AM EST) THC Negative Cocaine Screen, Urine Negative Opiate [...] procedure / Unknown 04/07/2024 10:55 AM EST us Viky Galvan MD POINT OF CARE TEST ENTER/EDIT OR DERABLES Final Result documented in this encounter Visit Diagnoses Diagnosis Uncomplicated opioid dependence (CMS/HCC)- Primary documented in this encounter
[2024-04-26 12:56] VITALS: BP 192/98; PULSE 74; RESP 15; TEMP 36.2; O2SAT 96; BMI 26.2
--- NOTE | 2024-04-26 12:56 | MHC.PC.OV ---
Vital Signs 04/26/24 12:56 04/26/24 13:01 Height 5 ft 8 in Weight 172 lb 6 oz BMI 26.2 BP 192/98 H 152/100 H Blood Pressure Location Lt brachial Rt brachial Position Sitting Sitting Respiration 15 Pulse 74 Pulse Source Pulse Oximeter Temp 97.1 F Temp Source Temporal Artery Scan Pulse Oximetry (%) 96 Oxygen Delivery Method Room Air Intake Visit Reasons: Pre-operative Intake Note: Patient is here for a Pre-op for Cataract R eye scheduled with Dr. 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 Required: No Accompanied by: Self / Same As Patient Allergies No Known Allergies Allergy (Verified 04/26/24 13:44) Medication List - Last Reconciled 04/26/24 by Ranjan Dueñas PA-C buprenorphine-naloxone 2-0.5 mg 1 film sublingual BID diclofenac sodium 75 mg PO BID fluorouracil 5% 1 appl topical BID 30 days lisinopril 30 mg PO DAILY 90 days lorazepam 1 mg PO Q8H 30 days paroxetine HCl 20 mg PO QAM simvastatin 20 mg PO BEDTIME triamcinolone acetonide 0.1% 1 appl topical DAILY 30 days zolpidem 10 mg PO BEDTIME 30 days Tobacco use date assessed: 04/26/24 Fall risk assessment: No Falls in past year Last assessed Fall Risk: 04/26/24 Dental Screening Dental Screen Date: 04/26/24 Did you have a dental visit in the last 12 months?: No Did you have a dental problem in the last 6 months where you did not have access to dental care?: No Was dental information given to patient?: Patient has dentist HPI Pre-operative HPI Details Peter is a 73 y/o M here today for a preop visit.? Pmhx significant for HTN,? HLD, YIN, opiate dependency. Patient has no history of CA, Congestive heart failure for CVA. He is not on any anticoagulation or antiplatelet therapy at this time. .. ?HTN: reports he has white coat HTN while in? the office, he does not regularly monitor his blood pressure at home. Home Blood pressure over right arm acceptable normally averages 130/80. There is obvious blood pressure discrepancy between arms. Elevated blood pressure readings noted and left arm as compared to right arm. He otherwise is asymptomatic without any swelling, pain or discoloration and left arm. We did discuss the possibility of getting a CT angiogram of the upper extremities though PATIENT IS SEVERELY CLAUSTROPHOBIC and would not be able to tolerate this procedure. --> advised on getting an echocardiogram and duplex arterial ultrasound of the left arm though patient would like to hold off on this for now. ?.. ?Impaired glucose? metabolism: Patient has made drastic lifestyle modifications and has lost a significant amount of weight since last office visit. ?.. 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 ? Takes lorazepam and paxil which he reports is helping his? anxiety tremendously. ?.. ?HLD: Has been complaint with his Statin without? any side effects.? Most recent lipid panel acceptable with LDL below 100 PFSH Surgical History History of surgery History of thumb surgery Family History Father No problems noted. Mother No problems noted. Sister In good health Social History Housing: House Alcohol intake: never Patient Tobacco Use Status: Never used Tobacco e-Cigarette/Vaping Use: Never Used Second Hand Smoke Exposure: No service: Yes Current occupational status: retired Cognitive needs: No Hearing needs: No Vision needs: Yes Questionnaire PHQ-9 Over the last 2 weeks, how often have you been bothered by any of the following problems? 1. Little interest or pleasure in doing things: not at all 2. Feeling down, depressed, or hopeless: not at all 3. Trouble falling or staying asleep, or sleeping too much: not at all 4. Feeling tired or having little energy: not at all 5. Poor appetite or overeating: not at all 6. Feeling bad about yourself - or that you are a failure or have let yourself or your family down: not at all 7. Trouble concentrating on things, such as reading the newspaper or watching television: not at all 8. Moving or speaking so slowly that other people could have noticed. Or the opposite - being so fidgety or restless that you have been moving around a lot more than usual: not at all 9. Thoughts that you would be better off or of hurting yourself in some way: not at all Total score: 0 Depression Screening Interpretation: Negative Depression Screening Done: Yes 56255 - PHQ-9 Billing: Yes Source: Developed by Drs. Jc Myles, Alyson Savage, Teodoro Hummel and colleagues, with an educational aris from [employer]. Thrive Questionnaire Date Thrive assessed: 04/26/24 I am a: Patient What is your living situation today?: I have a steady place to live Within the past 12 months, did the food you bought not last and you didn't have the money to get more?: Never true Within the past 12 months, did you worry whether your food would run out before you got money to buy more?: Never true Do you have trouble paying for medicines?: No Do you have trouble getting transportation to medical appointments?: No Do you have trouble paying your heating and electricity bill?: No Do you have trouble taking care of your child, family member or friend?: No Do you have trouble with day-to-day activities such as bathing, preparing meals, shopping, managing finances, etc.?: No Are you currently unemployed and looking for a job?: No Are you interested in more education?: No Please select the resources that you would like help with: None Currently or been in a relationship where the following occur: No concerns reported THRIVE Score: 0 AUDIT C Alcohol Use Questionnaire (AUDIT-C) 1. How often do you have a drink containing alcohol?: Never 2. How many drinks containing alcohol do you have on a typical day when you are drinking?: 1 or 2 (none) 3. How often do you have six or more drinks on one occasion?: Never Total Score: 0 YIN-7 AMB Questionnaire YIN-7 Date YIN - 7 assessed: 04/26/24 Feeling nervous, anxious, or on edge: 0 = Not at all Not being able to stop or control worryin = Not at all Worrying too much about different things: 0 = Not at all Trouble relaxin = Not at all Being so restless that it is hard to sit still: 0 = Not at all Becoming easily annoyed or irritable: 0 = Not at all Feeling afraid as if something awful might happen: 0 = Not at all Total YIN-7 score (0-4 normal; 5-9 mild; 10-14 moderate; 15-21 severe): 0 Source: Developed by Drs. Jc Myles, Alyson Savage, Teodoro Hummel and colleagues, with an educational aris from [employer]. YIN-7 Assessment Billing YIN-7 Assessment Tool: YIN-7 Assessment 58324 Review of Systems Const Denies headache(s) Eyes Denies loss of vision ENT Denies vertigo, Denies dizziness, Denies headache(s) and Denies sore throat Card Denies chest pain, Denies leg edema and Denies lightheadedness Resp Denies cough, Denies hemoptysis and Denies wheezing GI Denies abdominal pain, Denies melena, Denies constipation, Denies diarrhea and Denies vomiting Denies dysuria, Denies urinary frequency and Denies urinary urgency Musc Denies arthralgias, Denies joint swelling, Denies numbness and Denies tingling Neuro Denies Abnormal speech present, Denies behavioral changes, Denies vertigo, Denies dizziness, Denies headache(s), Denies loss of vision, Denies memory loss, Denies numbness and Denies tingling Psych Denies anxiety, Denies behavioral changes, Denies depression, Denies memory loss and Denies panic attacks [place]/Lymph Denies easy bleeding and Denies easy bruising Aller/Immun Denies wheezing Physical exam (Primary Care) Vital Signs: Last Vital Signs Temp 97.1 F 04/26/24 12:56 Pulse 74 04/26/24 12:56 Resp 15 04/26/24 12:56 BP 152/100 H 04/26/24 13:01 Pulse Ox 96 04/26/24 12:56 Oxygen Delivery Method Room Air 04/26/24 12:56 BMI result Body Mass Index 26.2 Tobacco/Smoking Status: Tobacco use Status Tobacco use date assessed 12/25/23 04/26/24 13:04 Patient Tobacco Use Status Never used Tobacco 04/26/24 13:04 e-Cigarette/Vaping Use Never Used 04/26/24 13:04 PHQ-9: PHQ-9 Score PHQ-9: Total score 0 04/26/24 13:04 Depression Screening Interpretation: Negative Thrive Assessment: Date of Thrive Assessment Date Thrive assessed 04/26/24 04/26/24 13:04 Currently or been in a relationship where the following occur: No concerns reported Const General: healthy appearing, no acute distress, alert and awake Nutritional Appearance: well nourished Orientation/consciousness: oriented to person, oriented to place and oriented to time HENMT Ears: TM's normal bilaterally General nose exam: Normal nasal mucous membranes and turbinates present Eyes Conjunctivae: conjunctivae normal Sclerae: sclerae normal Pupils: Equal, round and reactive pupils present Neck Neck: Yes no lymphadenopathy and Yes no JVD Thyroid: Thyroid normal Carotids: no bruits Resp Effort & Inspection: normal respiratory effort and not tachypneic Auscultation: no crackles, no rales, no rhonchi and no wheezes Cardio Rate: regular rate Rhythm: regular rhythm Heart sounds: no murmurs and normal S1 and S2 GI Palpation (GI): Soft to palpation, nontender, no hepatomegaly and no splenomegaly Auscultation: normal bowel sounds Skin General skin exam: no rashes or lesions noted and dry skin Neuro General: oriented to person, oriented to place and oriented to time Cranial nerves: Yes Equal, round and reactive pupils present Speech: No Abnormal speech present Gait exam (Neuro): Normal gait present Motor exam (neuro): no tremor noted Extrem Right upper extremity: full ROM Left upper extremity: full ROM Right lower extremity: full ROM; no edema Left lower extremity: full ROM; no edema Psych Mental Status: mental status grossly normal Speech and movement: Normal speech and movement present Affect: normal affect Attitude: cooperative Thought process: Normal thought process present Coding Level of Care Code Est Pt Level 4 (35610) Diagnoses Pre-op evaluation Z01.818 Primary hypertension I10 Hypertension type: primary hypertension Additional Codes YIN-7 Assessment Billing - YIN-7 Assessment Tool: YIN-7 Assessment 62450 ([id number]) PHQ-9 - 57004 - PHQ-9 Billing: Yes ([id number]) Assessment & Plan Assessment & Plan (1) Pre-op evaluation: Code(s): Z01.818 - Encounter for other preprocedural examination Category: Medical Plan: Patient's most recent labs stable. Blood pressure today in office slightly elevated over his right arm, has been a chronic finding for left arm elevated blood pressure reading. He has a pretty anxious person and does have some component of white coat hypertension as well. Otherwise asymptomatic without any chest discomfort or vascular compromise in the left upper extremity. Patient is medically clear for needed cataract removal procedures (2) HTN (hypertension): Code(s): I10 - Essential (primary) hypertension Category: Medical Qualifiers: Hypertension type: primary hypertension Qualified Code(s): I10 - Essential (primary) hypertension Plan: Patient's blood pressure slightly elevated today in office. As above blood pressure on right arm seems to be more reliable. We did discuss imaging of the left upper extremity evaluate why he has discrepancies of brachial blood pressure readings. He is somewhat open to the idea of getting an ultrasound of the left upper extremity evaluate for any arterial stenosis of though he does not any signs of vascular compromise.
[2024-04-26 13:01] VITALS: BP 152/100
== END 2024-04-26 13:19 | disposition home or self-care (01) ==
PROVIDERS: PCP Physician Assistant; Visit Provider Physician Assistant
DX: Z01.818 Encounter for other preprocedural examination (principal); I10 Essential (primary) hypertension

== ENCOUNTER → 2024-04-26 12:49 | Outpatient (BNVA) | payer BC, SELFPAY | PROVIDERS: PCP Physician Assistant; Visit Provider Physician Assistant | DX: Z01.818 Encounter for other preprocedural examination (principal); I10 Essential (primary) hypertension | CPT/HCPCS: 96127 ==

== ENCOUNTER 2024-05-10 07:09 | Day surgery (SDC) | payer BC, SELFPAY ==
[2024-05-04 14:44] VITALS: BMI 26.2
--- NOTE | 2024-05-06 15:20 | HO.ANESPROP2 ---
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 Mother No problems noted. Sister In good health Surgical History Surgical History History of surgery History of thumb surgery Social History Social History Housing: House Alcohol intake: never Patient Tobacco Use Status: Never used Tobacco e-Cigarette/Vaping Use: Never Used Second Hand Smoke Exposure: No Substance Use Type Other:: taking suboxone [facility] Practices: [employer] Advance Directives on File: No Nutrition Risks: No Nutritional Risk service: Yes Current occupational status: retired Cognitive needs: No Hearing needs: No Vision needs: Yes Meds Allergies Allergy/AdvReac Type Severity Reaction Status Date / Time No Known Allergies Allergy Verified 04/26/24 13:44 Home Medications ?Medication ?Instructions ?Recorded ?Confirmed ?Last Taken ?Type buprenorphine 2 mg-naloxone 0.5 mg 1 film sublingual BID 12/25/23 05/04/24 Unknown History sublingual film Exam Height,Weight and Vital Signs: Height 5 ft 8 in Weight 78.188 kg Assessment and Plan Assessment Anesthesia Assessment: Chart Reviewed
[2024-05-10] MEDS: Tetracaine HCl/PF 0.5% Oph Sol 4 ML DROPS 1 DROP EYE-RIGHT (07:59)
[2024-05-10] MEDS: Cyclopentolate 1 % Ophth Sol 2 ML DRPBTL 1 DROP EYE-RIGHT ×3 (08:00→08:16)
[2024-05-10] MEDS: Tropicamide 1 % Ophth Sol 3 ML BTL 1 DROP EYE-RIGHT ×3 (08:02→08:18)
[2024-05-10 08:04] VITALS: BP 135/88; PULSE 80; RESP 16; TEMP 36.8; O2SAT 97; BMI 25.8
[2024-05-10] MEDS: Ketorolac Tromethamine 0.5% Op 5 ML DROPS 1 DROP EYE-RIGHT ×3 (08:04→08:20)
[2024-05-10] MEDS: Phenylephrine HCL 2.5% Oph SoL 2 ML BOTTLE 1 DROP EYE-RIGHT ×3 (08:06→08:22)
--- NOTE | 2024-05-10 08:29 | HO.ANESPROP2 ---
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 Mother No problems noted. Sister In good health Family history of problems with anesthesia: No Surgical History Surgical History History of surgery History of thumb surgery History of Problems with Anesthesia: No Social History Social History Housing: House Alcohol intake: never Patient Tobacco Use Status: Never used Tobacco e-Cigarette/Vaping Use: Never Used Second Hand Smoke Exposure: No Substance Use Type Other:: taking suboxone [employer] Healthcare Practices: [employer]ondoism Advance Directives on File: No Nutrition Risks: No Nutritional Risk service: Yes Current occupational status: retired Cognitive needs: No Hearing needs: No Vision needs: Yes Meds Allergies Allergy/AdvReac Type Severity Reaction Status Date / Time No Known Allergies Allergy Verified 05/10/24 08:02 Active Medications: Current Medications Lactated Ringer's (Lr) 500 mls @ 50 mls/hr IV .Q10H ELBA Stop: 05/10/24 17:59 Povidone Iodine (Povidone Iodine 5 % Ophth Soln 30 Ml Bottle) 1 appl EYE-RIGHT PREOP PRN PRN Reason: Pre-Op Surgical Implant Prophy Home Medications ?Medication ?Instructions ?Recorded ?Confirmed ?Last Taken ?Type buprenorphine 2 mg-naloxone 0.5 mg 1 film sublingual BID 12/25/23 05/10/24 05/10/24 History sublingual film Exam Height,Weight and Vital Signs: Height 5 ft 8 in Weight 76.929 kg Last Vital Signs Temp 98.2 F 05/10/24 08:04 Pulse 80 05/10/24 08:04 Resp 16 05/10/24 08:04 BP 135/88 05/10/24 08:04 Pulse Ox 97 05/10/24 08:04 O2 Del Method Room Air 05/10/24 08:04 Airway Mallampati Class: II TM Dist: >3cm Neck ROM: Full Heart: RRR Lungs: CTA Assessment and Plan Assessment Anesthesia Assessment: Anesthesia Plan Discussed and Chart Reviewed Final Anesthetic Review Family History of Problems with Anesthesia: No History of Problems with Anesthesia: No NPO: Yes ASA Class: II Final Preanesthetic Review: Meds/Allgs Chart Reviewed, Consent Obtained/Reviewed and Anes Risks/Benef Reviewed Patient Risk: Low Procedure Risk: Low Anesthetic Plan Anesthetic Plan: MAC: Disposition: Standard PACU
[2024-05-10] MEDS: Lactated Ringers 500 ML 50 ML IV (08:31)
--- NOTE | 2024-05-10 09:11 | MHC.SHP ---
Pre-Procedural Eval Section A - 24 Hr Update-Section A only Date of Service: 05/10/24 The patient is an INPATIENT: No Changes since office visit: No Cold of Flu in the past 2 weeks, No New Medical Problems, No Changes in Medication and No Patient answered all questions The patient has been examined within 24 hours of the surgical procedure. The History & Physical has been completed within 30 days and I have reviewed it.: Yes Section B - Complete if H&P > 30 days Chief Complaint: Age-related nuclear cataract, right eye Allergies: Allergies Allergy/AdvReac Type Severity Reaction Status Date / Time No Known Allergies Allergy Verified 05/10/24 08:02 Plan Diagnosis/Plan: Unchanged I have reviewed the history and physical and performed a pertinent physical examination on my patient. No changes have occurred unless specified. Time Spent With Patient Time: Total time managing care of this patient today ____ minutes.
--- NOTE | 2024-05-10 09:12 | P.PCNO_ITS ---
Ophthalmology Procedure Procedure Date of Service: 05/10/24 Ophthalmology Viscoelastic: Healon Duet Dual Pack Pro Ophthalmology Lenses: IOL Acrysof MP - [id number] (20) Procedure Notes: PREOPERATIVE DIAGNOSIS: Decreased visual acuity right eye secondary to cataract POSTOPERATIVE DIAGNOSIS: Same PROCEDURE: Right cataract extraction with intraocular lens insertion SURGEON: Zach Graham M.D. ANESTHESIA: Topical/MAC ESTIMATED BLOOD LOSS: None COMPLICATIONS: None After obtaining informed consent, the patient was brought to the operating room suite and placed in the supine position. After adequate sedation per anesthesia, topical drops of Tetracaine were given to the right eye. The eye was then prepped and draped in the usual sterile fashion. The operating room microscope was then positioned over the operative eye and a lid speculum placed. A paracentesis was created. Viscoelastic was then instilled into the anterior chamber. A three plane incision was then created temporally, utilizing a 2.85 mm keratome. Capsulotomy forceps were then utilized to create a circular tear capsulotomy. Hydrodissection and hydrodelineation were carried out until adequate mobilization of the nucleus occurred. Phacoemulsification was then utilized to remove the dense central nucl eus followed by removal of the cortical material utilizing the automated aspiration irrigation unit. Viscoelastic was instilled into the posterior capsular bag followed by placement of a posterior chamber intraocular lens without difficulty. The residual Viscoelastic was then removed utilizing the automated IA machine. The wound was checked and found to be watertight. The patient tolerated the procedure well and the lid speculum was removed. Intracameral injection of Vigamox 0.1 mL followed by a subtenon injection of Kenalog-40 0.2 mL were administered. The patient will be seen in the a.m.
[2024-05-10 09:39] VITALS: BP 175/64; PULSE 57; RESP 16; TEMP 36.1; O2SAT 95
--- NOTE | 2024-05-10 09:47 | HO.POSTANES ---
Post Anesthesia Evaluation Post Anesthesia Evaluation Date of Service: 05/10/24 Vital Signs: Vital Signs Temp Pulse Resp BP Pulse Ox O2 Del Method 05/10/24 08:04 98.2 F 80 16 135/88 97 Room Air Anesthesia: Monitored Mental Status: Awake Pain Control: Satisfactory Nausea/Vomiting: None Hydration: Adequate Anesthesia-Related Issues: No Anes. Related Issues
== END 2024-05-10 09:45 | disposition home or self-care (01) ==
PROVIDERS: PCP Physician Assistant; Visit Provider Ophthalmology
PROC: (CPT 66985; principal; 2024-05-10 09:00)
DX: H25.11 Age-related nuclear cataract, right eye (principal); H54.7 Unspecified visual loss; H18.413 Arcus senilis, bilateral; I10 Essential (primary) hypertension; F41.1 Generalized anxiety disorder; E78.00 Pure hypercholesterolemia, unspecified; F43.10 Post-traumatic stress disorder, unspecified; Z79.899 Other long term (current) drug therapy; F11.20 Opioid dependence, uncomplicated; Z98.890 Other specified postprocedural states
CPT/HCPCS: 66984; J2250; J3301; V2630

== ENCOUNTER 2024-05-18 10:03 | Outpatient (AMB) | payer BC, SELFPAY ==
[2024-05-18 10:18] VITALS: BP 170/70; PULSE 62; RESP 16; TEMP 37; O2SAT 97; BMI 26.1
--- NOTE | 2024-05-18 10:18 | A.OFFPC_ITS ---
Vital Signs 05/18/24 10:18 05/18/24 10:29 Height 5 ft 8 in Weight 171 lb 12.8 oz BMI 26.1 BP 170/70 H 130/78 Blood Pressure Location Lt brachial Rt brachial Position Sitting Sitting Respiration 16 Pulse 62 Pulse Source Pulse Oximeter Temp 98.6 F Temp Source Oral Pulse Oximetry (%) 97 Oxygen Delivery Method Room Air Intake Visit Reasons: preop for 2nd eye Intake Note: The patient was last seen on 04/26/2024 for preop clearance of his right eye Head Baggage Porter Required: No Accompanied by: Self / Same As Patient Allergies No Known Allergies Allergy (Verified 05/18/24 22:17) Medication List - Last Reconciled 05/18/24 by MICHAEL [place] buprenorphine-naloxone 2-0.5 mg 1 film sublingual BID diclofenac sodium 75 mg PO BID fluorouracil 5% 1 appl topical BID 30 days lisinopril 30 mg PO DAILY 90 days lorazepam 1 mg PO Q8H 30 days paroxetine HCl 20 mg PO QAM simvastatin 20 mg PO BEDTIME triamcinolone acetonide 0.1% 1 appl topical DAILY 30 days zolpidem 10 mg PO BEDTIME 30 days Tobacco use date assessed: 05/18/24 Fall risk assessment: No Falls in past year Last assessed Fall Risk: 05/18/24 Dental Screening Dental Screen Date: 04/26/24 HPI preop for 2nd eye HPI Details The patient is a 73 year old male who is presenting today for preop clearance, patient of Ranjan Dueñas PA-C The patient was last seen on 04/26/2024 for preop clearance of his right eye Surgery: Cataract surgery of left eye on 05/24/2024 due to age related nuclear cataract. Patient also has a history of presbyopia of both eyes Surgeon/location: Zach Eagle, at [facility], [place], [place] Anesthesia: Local, MAC The patient denies history of perioperative hypothermia, blood clotting disorders. He is not on any anticoagulation Medical history is significant for impaired fasting glucose, carotid bruit, hypertension, HLD, and YIN The patient denies chest pain, shortness of breath, heart palpitation, dizziness or lightheadedness The patient reports that he was told to hold his lisinopril 30 mg the morning of surgery. The patient can take his other medications with sips of water The patient verbalized that he is seeing better out of his left eye than his right eye at this time. Right eye cataract surgery was done on 05/10/2024. The patient verbalized that he was told by staff that it will take a little time for his vision to get better, so he is hopeful. The patient 1st blood pressure was elevated at 170/70. The patient was instructed to relax for a while and blood pressure was rechecked: BP 130/70. Patient reports that he gets nervous every time he comes to the doctor's office. The patient reports right hand 3rd finger locking up on him. Discussed with the patient that he has a trigger finger and offered to refer him to Orthopedics (hand specialist). The patient declined, reports that he know what they are g oing to recommend and he is not interested. [facility] Medical History Arthritis PTSD (post-traumatic stress disorder) White coat syndrome with hypertension Opiate dependence HLD (hyperlipidemia) Anxiety HTN (hypertension) Surgical History S/P cataract surgery History of surgery History of thumb surgery Family History Father No problems noted. Mother No problems noted. Sister In good health Social History Housing: House Alcohol intake: never Patient Tobacco Use Status: Never used Tobacco e-Cigarette/Vaping Use: Never Used Second Hand Smoke Exposure: No service: Yes Current occupational status: retired Cognitive needs: No Hearing needs: No Vision needs: Yes Questionnaire Thrive Questionnaire Date Thrive assessed: 04/26/24 AUDIT C Alcohol Use Questionnaire (AUDIT-C) 3. How often do you have six or more drinks on one occasion?: Never Total Score: 0 YIN-7 AMB Questionnaire YIN-7 Date YIN - 7 assessed: 04/26/24 Source: Developed by Drs. Jc Myles, Alyson Savage, Teodoro Hummel and colleagues, with an educational aris from [employer]. Review of Systems Const Denies headache(s) Eyes Denies loss of vision ENT Denies vertigo, Denies dizziness, Denies headache(s) and Denies sore throat Card Denies chest pain, Denies leg edema and Denies lightheadedness Resp Denies cough, Denies hemoptysis and Denies wheezing GI Denies abdominal pain, Denies melena, Denies constipation, Denies diarrhea and Denies vomiting Denies dysuria, Denies urinary frequency and Denies urinary urgency Musc Denies arthralgias, Denies joint swelling, Denies numbness, Reports stiffness (right hand 3rd finger locking up intermittently) and Denies tingling Neuro Denies Abnormal speech present, Denies behavioral changes, Denies vertigo, Denies dizziness, Denies headache(s), Denies loss of vision, Denies memory loss, Denies numbness and Denies tingling Psych Denies anxiety, Denies behavioral changes, Denies depression, Denies memory loss and Denies panic attacks [place]/Lymph Denies easy bleeding and Denies easy bruising Aller/Immun Denies wheezing Physical exam (Primary Care) Vital Signs: Last Vital Signs Temp 98.6 F 05/18/24 10:18 Pulse 62 05/18/24 10:18 Resp 16 05/18/24 10:18 BP 130/78 05/18/24 10:29 Pulse Ox 97 05/18/24 10:18 Oxygen Delivery Method Room Air 05/18/24 10:18 BMI result Body Mass Index 26.1 Tobacco/Smoking Status: Tobacco use Status Tobacco use date assessed 05/18/24 05/18/24 10:23 Patient Tobacco Use Status Never used Tobacco 05/18/24 10:23 e-Cigarette/Vaping Use Never Used 05/18/24 10:23 Thrive Assessment: Date of Thrive Assessment Date Thrive assessed 04/26/24 05/18/24 10:23 Const General: healthy appearing, no acute distress, alert and awake Nutritional Appearance: well nourished Orientation/consciousness: oriented to person, oriented to place and oriented to time HENMT Ears: TM's normal bilaterally General nose exam: Normal nasal mucous membranes and turbinates present Eyes Conjunctivae: conjunctivae normal Sclerae: sclerae normal Pupils: Equal, round and reactive pupils present Neck Neck: Yes no lymphadenopathy and Yes no JVD Thyroid: Thyroid normal Carotids: no bruits Resp Effort & Inspection: normal respiratory effort and not tachypneic Auscultation: no crackles, no rales, no rhonchi and no wheezes Cardio Rate: regular rate Rhythm: regular rhythm Heart sounds: no murmurs and normal S1 and S2 GI Palpation (GI): Soft to palpation, nontender, no hepatomegaly and no splenomegaly Auscultation: normal bowel sounds Skin General skin exam: no rashes or lesions noted and dry skin Neuro General: oriented to person, oriented to place and oriented to time Cranial nerves: Yes Equal, round and reactive pupils present Speech: No Abnormal speech present Gait exam (Neuro): Normal gait present Motor exam (neuro): no tremor noted Extrem Right upper extremity: full ROM Left upper extremity: full ROM Right lower extremity: full ROM; no edema Left lower extremity: full ROM; no edema Psych Mental Status: mental status grossly normal Speech and movement: Normal speech and movement present Affect: normal affect Attitude: cooperative Thought process: Normal thought process present Coding Level of Care Code Est Pt Level 4 (95407) Diagnoses Pre-op evaluation Z01.818 Age-related nuclear cataract of both eyes H25.13 Cataract type: age-related Age-related cataract type: nuclear Laterality: bilateral Impaired fasting glucose R73.01 Primary hypertension I10 Hypertension type: primary hypertension Mixed hyperlipidemia E78.2 Hyperlipidemia type: mixed hyperlipidemia Trigger middle finger of right hand M65.331 Trigger finger location: middle finger Laterality: right Time Spent (min) 36 Assessment & Plan Assessment & Plan (1) Pre-op evaluation: Code(s): Z01.818 - Encounter for other preprocedural examination Category: Medical Plan: Regarding preop clearance, the patient is at acceptable risk for proposed surgery. Reviewed with the patient that no surgery is completely free of risk and that this examination is to assist the surgeon in reviewing informed consent. Reinforced holding lisinopril the day of surgery and taking his other medications with sips of water. (2) Cataract: Code(s): H26.9 - Unspecified cataract Category: Medical Qualifiers: Cataract type: age-related Age-related cataract type: nuclear Laterality: bilateral Qualified Code(s): H25.13 - Age-related nuclear cataract, bilateral Plan: Right eye was already operated on on 05/10/2024. Left eye surgery will perform on 05/24/2024. The patient verbalized that he is seeing better out of his left eye than his right eye at this time. Right eye cataract surgery was done on 05/10/2024. The patient verbalized that he was told by staff that it will take a little time for his vision to get better, so he is hopeful. (3) Impaired fasting glucose: Code(s): R73.01 - Impaired fasting glucose Category: Medical Plan: Fasting glucose was 112 on last labs, but his A1c was 5.8 (4) HTN (hypertension): Code(s): I10 - Essential (primary) hypertension Category: Medical Qualifiers: Hypertension type: primary hypertension Qualified Code(s): I10 - Essential (primary) hypertension Plan: The patient 1st blood pressure was elevated at 170/70. The patient was instructed to relax for a while and blood pressure was rechecked: BP 130/70. Patient reports that he gets nervous every time he comes to the doctor's office. Reinforced low-sodium diet. The patient is aware to hold the lisinopril on the day of surgery (5) HLD (hyperlipidemia): Code(s): E78.5 - Hyperlipidemia, unspecified Category: Medical Qualifiers: Hyperlipidemia type: mixed hyperlipidemia Qualified Code(s): E78.2 - Mixed hyperlipidemia Plan: Encouraged low-cholesterol diet/activity as tolerated (6) Trigger finger: Code(s): M65.30 - Trigger finger, unspecified finger Category: Medical Qualifiers: Trigger finger location: middle finger Laterality: right Qualified Code(s): M65.331 - Trigger finger, right middle finger Plan: The patient reports right hand 3rd finger locks up on him. Discussed with the patient that he has a trigger finger and offered to refer him to Orthopedics (hand specialist). The patient declined, reports that he knows what they are going to recommend and he is not interested.
[2024-05-18 10:29] VITALS: BP 130/78
--- OUTSIDE RECORDS SUMMARY | 2024-05-18 11:48 | XMS_ITS | Clinical Summary ---
Author Organization [employer] Address [address] [place] [address] Care Team Providers Care Switchbox Assembler Name Role Phone Unavailable Primary Care Provider [...] under the tongue 2 times daily for 28 days. 56 Film 05/13/19 25 06/09/ 025 Active buprenorphine -naloxone (Suboxone) 2-0.5 MG [...] 21 days. 42 Film 04/21/19 25 025 Discontinued(Re order (will not trigger [...] - Continue current recovery support. Met with assistant football coach, Al. - Continue current recovery effort. [...] - Continue current recovery support. Met with assistant football coach, Al. - Continue current recovery effort. - Reviewed harm reduction and overdose prevention. - Induction on 10/29/23. Started with high dose, and developed adverse reaction. Dunn better with lower dose, 4/1 mg daily. Assessment & Plan (02/11/2024 10:41 AM EST): - stage of change: action -> early remission / maintenance - Utox review: pos opi on 10/29/23 intake; pos bup and bzd since then - Overdose risk: intermediate to high. He uses alone, takes BZD, has PTSD, and age. - Continue current recovery support. Met with assistant football coach, Al. - Continue current recovery effort. - Reviewed harm reduction and overdose prevention. - Induction on 10/29/23. Started with high dose, and developed adverse reaction. Dunn better with lower dose, 4/1 mg daily. Assessment & Plan (01/07/2024 5:13 AM EDT): - stage of change: action -> early remission / maintenance - Utox review: pos opi on 10/29/23 intake; pos bup and bzd since then - Overdose risk: intermediate to high. He uses alone, takes BZD, has PTSD, and age. - Continue current recovery support. Met with assistant football coach, Al. - Continue current recovery effort. - Reviewed harm reduction and overdose prevention. - Induction on 10/29/23. Started with high dose, and developed adverse reaction. Dunn better with lower dose, 4/1 mg daily. Assessment & Plan (12/17/2023 11:24 AM EDT): - stage of change: action -> early remission / maintenance - Utox review: pos opi on 10/29/23 intake; pos bup and bzd since then - Overdose risk: intermediate to high. He uses alone, takes BZD, has PTSD, and age. - Continue current recovery support. Met with assistant football coach, Al. - Continue current recovery effort. - Reviewed harm reduction and overdose prevention. - Induction on 10/29/23. Started with high dose, and developed adverse reaction. Dunn better with lower dose, 4/1 mg daily. Assessment & Plan (11/26/2023 5:59 AM EDT): - stage of change: action - Utox review: - Overdose risk: intermediate to high. He uses alone, takes BZD, has PTSD, and age. - Continue current recovery support. Met with assistant football coach, Al. - Continue current recovery effort. - Reviewed harm reduction and overdose prevention. - Induction on 10/29/23. Started with high dose, and developed adverse reaction. Dunn better with lower dose, 4/1 mg daily. Assessment & Plan (10/29/2023 1:11 PM EDT): - stage of change: action - Utox review: - Overdose risk: intermediate to high. He uses alone, takes BZD, has PTSD, and age. - Continue current recovery support. Met with assistant football coachJoe, today. - Continue current recovery effort. - [...] Encounters Date Type Department Care Team Description 05/18/2024 Telephone [facility] [address] [place] [address] Susy Sal ANP 05/12/2024 Refill [facility] [address] [place], [place] [phone] Dennis Del Cid, YAEL Uncomplicated opioid dependence ([facility]) 04/28/2024 10:00 AM EST Clinical Support [facility] [address] [place] [address] Dennis Del Cid, YAEL Uncomplicated opioid dependence (CMS/HCC) (Primary Dx) 04/28/2024 Travel 04/21/2024 Refill [facility] [address] [place] [phone] Dennis Del Cid RN Uncomplicated opioid dependence (CMS/HCC) 04/07/2024 10:30 AM EST Office Visit [address] [address] Viky Galvan MD Uncomplicated opioid dependence (CMS/HCC) (Primary Dx) 04/07/2024 Travel 03/31/2024 Refill [facility] [address] [place] [phone] Dennis Del Cid RN Uncomplicated opioid dependence (CMS/HCC) 03/17/2024 9:45 AM EST Clinical Support [address] [address] Dennis Del Cid RN Uncomplicated opioid dependence (CMS/HCC) (Primary Dx) 03/17/2024 Travel 02/25/2024 10:00 AM EST Office Visit [address] [address] Viky Galvan MD Uncomplicated opioid dependence (CMS/HCC) (Primary Dx) 02/25/2024 Refill [facility] [address] [place] [phone] Corina Muller RN Uncomplicated opioid dependence (CMS/HCC) 02/25/2024 Travel 02/24/2024 Telephone [facility] [address] [place] [phone] Bonnie Hernández, CLINICAL SUPPORT NURSE insurance 02/18/2024 Refill [facility] [address] [place] [phone] Dennis Del Cid RN Uncomplicated opioid dependence (CMS/HCC) from Last 3 Months Social History Tobacco Use Types Packs/Day Years Used Date Smoking Tobacco: Former Cigarettes Tobacco Cessation:Counseling Given: Not Answered Alcohol Use Standard Drinks/Week Comments Not Currently 0 (1 standard drink = 0.6 oz pur e alcohol) Depression Answer Date Recorded Patient Health Questionnaire-9 Score 0 04/28/2024 Patient Health Questionnaire-9 Score 0 04/28/2024 Last PHQ-9: Questionnaire Data Not on file 0 04/28/2024 Housing Stability Answer Date Recorded What is your housing situation today? I have marino meléndez 04/28/[address] you li ve. Do you have problems with any of the following? None of the above 04/28/2024 Food Insecurity Answer Date Recorded Within the past 12 months, y ou worried that your food would run out before you got money to buy more: Never True 04/28/2024 Within the past 12 months,th e food you bought just didn't last and you didn't have enough money to get more: Never True Transportation Answer Date Recorded In the past 12 months, has l ack of transportation kept you from medical appts, meetings, work or from getting things needed for daily living? No 04/28/2024 Utilities Answer Date Recorded In the past 12 months, has t he electric, gas, oil or water company threatened to shut off services in your home? No 04/28/2024 Depression Answer Date Recorded Patient Health Questionnaire-2 Score 0 04/28/2024 Internet Access Answer Date Recorded Internet Access Q1 Yes 04/28/2024 Internet Access Q2 Not on file 04/28/2024 Sex and Gender Information Value Date Recorded Sex Assigned at Male 10/29/2023 10:50 AM EDT Legal Sex Male 10:43 AM EDT Gender Identity Male 10/29/2023 10:50 AM EDT Sexual Orientation Straight 10/29/2023 10 :50 AM EDT Plan of Treatment Upcoming Encounters Date Type Department Care Team (Late st Contact Info) Description 05/19/2024 10:00 AM EDT Office Visit [facility] [address] [place] [phone] Viky Galvan MD [address] [place] [phone] 06/16/2024 10:00 AM EDT Clinical Support [facility] [address] [place] [phone] Dennis Del Cid, YAEL [address] [place] [phone] Health Maintenance Due Date Last Done Comments CT Colonography 1951 Colonoscopy 1951 FIT 1951 FOBT 1950 Lipid Panel 1950 Sigmoidoscopy 1950 Zoster Vaccines (1 of 2) 06/05/2001 DTaP/Tdap/Td Vaccines (1 - Tdap) 11/10/2020 11/09/2020 Diabetes: Hemoglobin A1C 11/05/2024 11/06/2023 Colorectal Cancer Screening 12/29/2024 FIT DNA/Cologuard 12/29/2024 12/29/2021, 09/17/2018 Alcohol/Substance Use Screening 04/28/2025 04/28/2024 Depression Screening 04/28/2025 04/28/2024, 04/28/19 25 SDOH Screening 04/28/2025 04/28/2024 Tobacco Screening 04/28/2025 04/28/2024 RSV Patients and Patients Aged 60 years [...] on patient's age to complete this topic Goals Goal Patient Goal Type Associated Problems Recent Progress Patient-Stated? Author Increase coping skills to promote long-term recovery and improve ability to perform daily activities General No Dennis Del Cid, meat sales and storage manager Procedure Name Priority Date/Time Associated Diagnosis Comments POCT AJAY-14 URINE DRUG SCREEN Routine 04/28/2024 10:36 AM EST Uncomplicated opioid dependence (CMS/HCC) POCT AJAY-14 URINE DRUG SCREEN Routine 04/07/2024 10:55 AM EST Uncomplicated opioid dependence (CMS/HCC) POCT AJAY-14 URINE DRUG SCREEN Routine 03/17/2024 9:46 AM EST Uncomplicated opioid dependence (CMS/HCC) POCT AJAY-14 URINE DRUG SCREEN Routine 02/25/2024 10:43 AM EST Uncomplicated opioid dependence (CMS/HCC) HEPATITIS C AB W/REFL TO HCV RNA, QN, PCR Routine 11/06/2023 12:27 PM EDT HEMOGLOBIN A1C Routine 11/06/2023 12:27 PM EDT from Last 3 Months or Most Recently Relevant to Health Maintenance Results * POCT AJAY-14 Urine Drug Screen (04/28/2024 10:36 AM EST) Only the most recent of4 resultswithin the time period is included. THC [...] obtained by clean catch procedure / Unknown 04/28/2024 10:36 AM EST Viky Galvan MD POINT OF CARE TEST ENTER/EDIT OR DERABLES Final Result * Hepatitis C Antibody with Reflex to HCV, RNA, Quantitative, Real-Time PCR (11/06/2023 12:27 PM EDT) Hepatitis C Antibody Nonreactive Nonreactive [facility] Comment:Antibodies to HCV no t detected; does not exclude early acuteHCV infection. 11/06/2023 12:2 7 PM EDT 11/06/2023 1:12 PM EDT Viky Galvan MD LAB BLOOD ORDERABLES Final Resul t Performing Organization Address [facility] Co de Phone Number [facility] [address] [place] [phone] * Hemoglobin A1c (11/06/2023 12:27 PM EDT) Hemoglobin A1c 5.8 <6.0 % [facility] Comment:Hemoglobin A1C Refer ence Range Adults: 4.8 - 6.0 % Non diabetic: < 6.0 % Goal: < 7.0 %Additional Action Suggested: > 8.0 %Note: Hemoglobin A1c results are invalid for patients with abnormal amounts of HbF. Blood transfusions may impact the HbA1c concentration in the patient sample. Estimated Average Glucose 120 mg/dL [facility] Comment:eAG = Estimated ave rage glucose which is %A1C expressed asaverage glucose, using the formula of the S9X-MyruiopJelxpmb Glucose study (ADAG), Diabetes Care, Vol.31,#8,Oct. 2007 11/06/2023 12:2 7 PM EDT 11/06/2023 1:12 PM EDT Viky Galvan MD LAB BLOOD ORDERABLES Final Resul t Performing Organization Address [facility] Co de Phone Number [facility] [address] [place] [phone] from Last 3 Months or Most Recently Relevant to Health Maintenance Insurance BS [facility] HMO
--- OUTSIDE RECORDS SUMMARY | 2024-05-18 11:48 | XMS_ITS | Encounter Summary ---
Author Organization [employer] Address [address] [place] [address] Care Team Providers Care Political Science Faculty Member Name Role Phone Unavailable Primary Care Provider Unavailabl e Encounter Details Date Type Department Care Team (Late st Contact Info) Description 05/18/2024 Telephone [facility] [address] [place], [place] [phone] Susy Sal ANP [address] [place], [place] [phone] Social History Tobacco Use Types Packs/Day Years Used Date Smoking Tobacco: Former Cigarettes Alcohol Use Standard Drinks/Week Comments Not Currently [...] t he electric, gas, oil or water [employer] threatened to shut off services in your [...] AM EDT documented as of this encounter Miscellaneous Notes * Telephone Encounter - Kimmy Michele - 05/18/2024 8:48 AM EDT Pt was called due to pcp on [facility] . Pt no answer / inbox was full documented in this encounter Plan of Treatment Upcoming Encounters Date Type Department Care Team (Late st Contact Info) Description 05/19/2024 10:00 AM EDT Office Visit [address] [phone] Viky Galvan MD [address] [place] [phone] 06/16/2024 10:00 AM EDT Clinical Support [address] [address] Dennis Del Cid RN [address] [place] [phone] documented as of this encounter Goals Goal Patient Goal Type Associated Problems Recent Progress Patient-Stated? Author Increase coping skills to promote long-term recovery and improve ability to perform daily activities General No Dennis Del Cid, YAEL documented as of this encounter Visit Diagnoses Not on filedocumented in this encounter Additional Health Concerns Assessment Noted Time PHQ-9 Depression Total Score: 0 04/28/19 25 10:13 AM EST documented as of this encounter
--- OUTSIDE RECORDS SUMMARY | 2024-05-18 11:48 | XMS_ITS | Encounter Summary ---
Author Organization [employer] Address [address] [place] [address] Care Team Providers Care Scrap Preparer Name Role Phone Unavailable Primary Care Provider Unavailabl e Encounter Details Date Type Department Care Team (Latest Contact Info) Description 04/28/2024 Travel Social History Tobacco Use Types Packs/Day [...] Description 05/19/2024 10:00 AM EDT Office Visit [facility] [address] [place] [phone] Viky Galvan MD [address] [place] [address] 06/16/2024 10:00 AM EDT Clinical Support [address] [address] Dennis Del Cid, YAEL [address] [place] [phone] documented as of this encounter Goals Goal Patient Goal Type Associated Problems Recent Progress Patient-Stated? Author Increase coping skills to promote long-term recovery and improve ability to perform daily activities General No Dennis Del Cid, RN documented as of this encounter Visit Diagnoses Not on filedocumented in this encounter Additional Health Concerns Assessment Noted Time PHQ-9 Depression Total Score: 0 04/28/19 25 10:13 AM EST documented as of this encounter
--- OUTSIDE RECORDS SUMMARY | 2024-05-18 11:48 | XMS_ITS | Encounter Summary ---
Author Organization [employer] Address [address] [place] [address] Care Team Providers Care Debeader Name Role Phone Unavailable Primary Care Provider Unavailabl e Reason for Visit * Reason Comments OBAT F/U Encounter Details Date Type Department Care Team (Latest Contact Info) Description 04/28/2024 10:00 AM EST Clinical Support [facility]INE [address] [place] [address] Dennis Del Cid, RN [address] [place] [address] Uncomplicated opioid dependence (CMS/HCC) (Primary Dx) Social [...] as of this encounter Progress Notes * Dennis Del Cid RN - 04/28/2024 10:00 AM EST Peter Sanz is a 73 y.o. male [...] not immune, declined vaccines 11/12/23 PCP: at [facility]: Ranjan Dueñas. Last seen 12/25/23. Last visit: 04/07/24 Utox: bup, bzo (prescribed) He is pleased that he is gaining weight. 168 lbs today. 160 lbs when he started OBAT. He states hiscar did not start this morning, and had to do a jump start. He could not find a parking when he arrived, and had to borrow a quarter from Mary ([employer] Sales Associate) to park on the street. He is having eye surgery in April. Right eye cataract on 04/12/24 and left eye on 05/06/24. He is worried about having a surgery. Today 04/28/24 Utox bup, bzo (prescribed) Peter seen today for follow up for opioid use disorder. He reports doing ok. Something got mixed up with his pre-op appointment and R cataract surgery was moved to 05/10/24 and L eye will happen 2-3 weeks after that. He is looking forward to being able to see and read more easily. He will call if there is any issue with him coming in person to next appointment. Will increase to q4 weeks after that. No concerns with Suboxone, still feels tired sometimes although thinks it is partially age related. Plan: Suboxone dosing schedule of 4/1 mg [...] except as provided at 2.12??(5) and 2.65. documented in this encounter Plan of Treatment Upcoming Encounters Date Type Department Care Team (Late st Contact Info) Description 05/19/2024 10:00 AM EDT Office Visit [address] [address] Viky Galvan MD [address] [place] [phone] 06/16/2024 10:00 AM EDT Clinical Support [address] [address] Dennis Del Cid RN [address] [place] [phone] documented as of this encounter Goals Goal Patient Goal Type Associated Problems Recent Progress Patient-Stated? Author Increase coping skills to promote long-term recovery and improve ability to perform daily activities General No Dennis DelC id RN documented as of this encounter Procedures Procedure Name Priority Date/Time Associated Diagnosis Comments POCT AJAY-14 URINE DRUG SCREEN Routine 04/28/2024 10:36 AM EST Uncomplicated opioid dependence (CMS/HCC) documented in this encounter Results * POCT AJAY-14 Urine Drug Screen (04/28/2024 10:36 AM EST) THC Negative Cocaine Screen, Urine [...] dependence (CMS/HCC)- Primary documented in this encounter Additional Health Concerns Assessment Noted Time PHQ-9 Depression Total Score: 0 04/28/19 25 10:13 AM EST documented as of this encounter
--- OUTSIDE RECORDS SUMMARY | 2024-05-18 11:48 | XMS_ITS | Encounter Summary ---
Author Organization [employer] Address [address] [facility] [address] [place] [address] Care Team Providers Care Manager Urology Name Role Phone Unavailable Primary Care Provider Unavailabl e Reason for Visit * Reason Onset Date Comments Med Refill 05/12/2024 Encounter Details Date Type Department Care Team ([facility] st Contact Info) Description 05/12/2024 Refill [facility] MED[facility]INE [address] [place] [address] Dennis Del Cid, YAEL [address] [place] [address] Uncomplicated opioid dependence (CMS/HCC) Social History Tobacco [...] Description 05/19/2024 10:00 AM EDT Office Visit [facility] MED[facility]INE [address] [place] [phone] Viky Galvan MD [address] [place] [phone] 06/16/2024 10:00 AM EDT Clinical Support [address] [address] Dennis Del Cid, YAEL [address] [place] [phone] documented as of this encounter Goals Goal Patient Goal Type Associated Problems Recent Progress Patient-Stated? Author Increase coping skills to promote long-term recovery and improve ability to perform daily activities General No Dennis Del Cid, YAEL documented as of this encounter Visit Diagnoses Diagnosis Uncomplicated opioid dependence (CMS/HCC) documented in this encounter Additional Health Concerns Assessment Noted Time PHQ-9 Depression Total Score: 0 04/28/19 25 10:13 AM EST documented as of this encounter
--- OUTSIDE RECORDS SUMMARY | 2024-05-18 11:48 | XMS_ITS | Encounter Summary ---
Author Organization [employer] Address [address] [place] [address] [address] [place] [address] Care Team Providers Care Hospice Community Liaison Name Role Phone Unavailable Primary Care Provider Unavailabl e Reason for Visit * Reason Onset Date Comments Med Refill 04/21/2024 Encounter Details Date Type Department Care Team (Late st Contact Info) Description 04/21/[address] [address] Dennis Del Cid, YAEL [address] [place] [phone] Uncomplicated opioid dependence (CMS/HCC) Social History Tobacco [...] Description 05/19/2024 10:00 AM EDT Office Visit [facility] [address] [place] [phone] Viky Galvan MD [address] [place] [phone] 06/16/2024 10:00 AM EDT Clinical Support [facility] [address] [place] [address] Dennis Del Cid, YAEL [address] [place] [phone] documented as of this encounter Visit Diagnoses Diagnosis Uncomplicated opioid dependence (CMS/HCC) documented in this encounter
== END 2024-05-18 11:14 | disposition home or self-care (01) ==
LOC: HO.HMCH 10:04
PROVIDERS: PCP Physician Assistant
DX: Z01.818 Encounter for other preprocedural examination (principal); H25.13 Age-related nuclear cataract, bilateral; R73.01 Impaired fasting glucose; I10 Essential (primary) hypertension; E78.2 Mixed hyperlipidemia; M65.331 Trigger finger, right middle finger

== ENCOUNTER → 2024-05-18 10:03 | Outpatient (BNVA) | payer BC, SELFPAY | PROVIDERS: PCP Physician Assistant ==

== ENCOUNTER 2024-05-31 08:18 | Day surgery (SDC) | payer BC, SELFPAY ==
[2024-05-04 14:50] VITALS: BMI 26.2
[2024-05-31] MEDS: Tetracaine HCl/PF 0.5% Oph Sol 4 ML DROPS 1 DROP EYE-LEFT (09:00)
[2024-05-31 09:02] VITALS: BP 139/84; PULSE 52; RESP 16; TEMP 36.9; O2SAT 97; BMI 26.5
[2024-05-31] MEDS: Cyclopentolate 1 % Ophth Sol 2 ML DRPBTL 1 DROP EYE-LEFT ×3 (09:03→09:19)
[2024-05-31] MEDS: Tropicamide 1 % Ophth Sol 3 ML BTL 1 DROP EYE-LEFT ×3 (09:05→09:20)
--- NOTE | 2024-05-31 09:05 | MHC.SHP ---
Pre-Procedural Eval Section A - 24 Hr Update-Section A only Date of Service: 05/31/24 The patient is an INPATIENT: No Changes since office visit: No Cold of Flu in the past 2 weeks, No New Medical Problems, No Changes in Medication and No Patient answered all questions The patient has been examined within 24 hours of the surgical procedure. The History & Physical has been completed within 30 days and I have reviewed it.: Yes Section B - Complete if H&P > 30 days Chief Complaint: Age-related nuclear cataract, left eye Allergies: Allergies Allergy/AdvReac Type Severity Reaction Status Date / Time No Known Allergies Allergy Verified 05/18/24 22:17 Plan Diagnosis/Plan: Unchanged I have reviewed the history and physical and performed a pertinent physical examination on my patient. No changes have occurred unless specified. Time Spent With Patient Time: Total time managing care of this patient today ____ minutes.
--- NOTE | 2024-05-31 09:05 | HO.PNOPHT ---
Ophthalmology Procedure Procedure Date of Service: 05/31/24 Ophthalmology Viscoelastic: Healon Duet Dual Pack Pro Ophthalmology Lenses: IOL Acrysof MP - [id number] (20) Procedure Notes: PREOPERATIVE DIAGNOSIS: Decreased visual acuity left eye secondary to cataract POSTOPERATIVE DIAGNOSIS: Same PROCEDURE: Left cataract extraction with intraocular lens insertion SURGEON: Zach Graham M.D. ANESTHESIA: Topical/MAC ESTIMATED BLOOD LOSS: None COMPLICATIONS: None After obtaining informed consent, the patient was brought to the operation room suite and placed in the supine position. After adequate sedation per anesthesia, topical drops of Tetracaine were given to the left eye. The eye was then prepped and draped in the usual sterile fashion. The operating room microscope was then positioned over the operative eye and a lid speculum placed. A paracentesis was created. Viscoelastic was then instilled into the anterior chamber. A three plane incision was then created temporally, utilizing a 2.85 mm keratome. Capsulotomy forceps were then utilized to create a circular tear capsulotomy. Hydrodissection and hydrodelineation were carried out until adequate mobilization of the nucleus occurred. Phacoemulsification was then utilized to remove the dense central nucleus followed by removal of the cortical material utilizing the automated aspiration irrigation unit. Viscoat elastic was instilled into the posterior capsular bag followed by placement of a posterior chamber intraocular lens without difficulty. The residual Viscoat elastic was then removed utilizing the automated IA machine. The wound was check and found to be watertight. The patient tolerated the procedure well and the lid speculum was removed. Intracameral injection of Vigamox 0.1 mL followed by a subtenon injection of Kenalog-40 0.2 mL were administered. The patient will be seen in the a.m.
[2024-05-31] MEDS: Ketorolac Tromethamine 0.5% Op 5 ML DROPS 1 DROP EYE-LEFT ×3 (09:08→09:21)
[2024-05-31] MEDS: Phenylephrine HCL 2.5% Oph SoL 2 ML BOTTLE 1 DROP EYE-LEFT ×3 (09:09→09:24)
--- NOTE | 2024-05-31 09:09 | HO.ANESPROP2 ---
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 Mother No problems noted. Sister In good health Family history of problems with anesthesia: No Surgical History Surgical History S/P cataract surgery History of surgery History of thumb surgery History of Problems with Anesthesia: No Social History Social History Housing: House Alcohol intake: never Patient Tobacco Use Status: Never used Tobacco e-Cigarette/Vaping Use: Never Used Second Hand Smoke Exposure: No Substance Use Type Other:: taking suboxone Gnosticist Healthcare Practices: Latter-Day Advance Directives on File: No Nutrition Risks: No Nutritional Risk service: Yes Current occupational status: retired Cognitive needs: No Hearing needs: No Vision needs: Yes Meds Allergies Allergy/AdvReac Type Severity Reaction Status Date / Time No Known Allergies Allergy Verified 05/18/24 22:17 Home Medications ?Medication ?Instructions ?Recorded ?Confirmed ?Last Taken ?Type buprenorphine 2 mg-naloxone 0.5 mg 1 film sublingual BID 12/25/23 05/18/24 05/31/24 07:30 History sublingual film Exam Height,Weight and Vital Signs: Height 5 ft 8 in Weight 78.188 kg Assessment and Plan Assessment Anesthesia Assessment: Chart Reviewed Final Anesthetic Review Family History of Problems with Anesthesia: No History of Problems with Anesthesia: No Documented by User: Keiko Gore DO 05/31/24 09:11 [facility] Past Medical History Medical History Arthritis PTSD (post-traumatic stress disorder) White coat syndrome with hypertension Opiate dependence HLD (hyperlipidemia) Anxiety HTN (hypertension) Family History Family History Father No problems noted. Mother No problems noted. Sister In good health Family history of problems with anesthesia: No Surgical History Surgical History S/P cataract surgery History of surgery History of thumb surgery History of Problems with Anesthesia: No Social History Social History Housing: House Alcohol intake: never Patient Tobacco Use Status: Never used Tobacco e-Cigarette/Vaping Use: Never Used Second Hand Smoke Exposure: No Substance Use Type Other:: taking suboxone Gnosticist Healthcare Practices: Latter-Day Advance Directives on File: No Nutrition Risks: No Nutritional Risk service: Yes Current occupational status: retired Cognitive needs: No Hearing needs: No Vision needs: Yes Meds Allergies Allergy/AdvReac Type Severity Reaction Status Date / Time No Known Allergies Allergy Verified 05/18/24 22:17 Home Medications ?Medication ?Instructions ?Recorded ?Confirmed ?Last Taken ?Type buprenorphine 2 mg-naloxone 0.5 mg 1 film sublingual BID 12/25/23 05/18/24 05/31/24 07:30 History sublingual film Exam Exam Date and Time: 05/31/24 0909 Height,Weight and Vital Signs: Height 5 ft 8 in Weight 78.188 kg Vital Signs Temperature 98.4 F 05/31/24 09:02 Pulse Rate 52 05/31/24 09:02 Respiratory Rate 16 05/31/24 09:02 Blood Pressure 139/84 05/31/24 09:02 Pulse Oximetry 97 05/31/24 09:02 Oxygen Delivery Method Room Air 05/31/24 09:02 Temperature 98.4 F 05/31/24 09:02 Pulse Rate 52 05/31/24 09:02 Respiratory Rate 16 05/31/24 09:02 Blood Pressure 139/84 05/31/24 09:02 Pulse Oximetry 97 05/31/24 09:02 Oxygen Delivery Method Room Air 05/31/24 09:02 Airway Mallampati Class: III (small mouth) TM Dist: >3cm Neck ROM: Full Loose/Missing/Broken Teeth: No (patient denies any loose or broken teeth) Heart: S1S2 Lungs: CTAB Assessment and Plan Assessment Anesthesia Assessment: Anesthesia Plan Discussed and Chart Reviewed Final Anesthetic Review Family History of Problems with Anesthesia: No History of Problems with Anesthesia: No NPO: Yes ASA Class: III Final Preanesthetic Review: No Changes in Pt Med Stat, Meds/Allgs Chart Reviewed, Consent Obtained/Reviewed and Anes Risks/Benef Reviewed Patient Risk: Intermediate Procedure Risk: Low Anesthetic Plan Anesthetic Plan: MAC: and Agree w/ Assess. and Plan Disposition: Standard PACU
[2024-05-31] MEDS: Lactated Ringers 500 ML 50 ML IV (09:16)
[2024-05-31 09:58] VITALS: BP 108/70; PULSE 50; RESP 18; TEMP 36.7; O2SAT 95
== END 2024-05-31 10:02 | disposition home or self-care (01) ==
PROVIDERS: PCP Physician Assistant; Visit Provider Ophthalmology
PROC: (CPT 66985; principal; 2024-05-31 09:30)
DX: H25.12 Age-related nuclear cataract, left eye (principal); H52.4 Presbyopia; H18.419 Arcus senilis, unspecified eye; I10 Essential (primary) hypertension; E78.2 Mixed hyperlipidemia; R73.01 Impaired fasting glucose; F43.10 Post-traumatic stress disorder, unspecified; F41.9 Anxiety disorder, unspecified; F11.20 Opioid dependence, uncomplicated; Z79.899 Other long term (current) drug therapy; Z87.891 Personal history of nicotine dependence; Z98.890 Other specified postprocedural states
CPT/HCPCS: 66984; J2250; J3010; J3301; V2630

== ENCOUNTER 2024-10-06 13:13 | Outpatient (REF) | payer BC, SELFPAY | END 2024-10-06 13:14 | disposition home or self-care (01) | LOC: HO.HHCLNP 13:13 | PROVIDERS: Visit Provider Family Medicine | DX: F11.20 Opioid dependence, uncomplicated (principal) | CPT/HCPCS: 36415; 80353 ==

== ENCOUNTER 2024-12-27 11:04 | Outpatient (REF) | payer BC, SELFPAY ==
--- OUTSIDE RECORDS SUMMARY | 2024-12-27 13:27 | XMS_ITS | Clinical Summary ---
Author Organization [employer] Address [address] [facility] [address] [place] [address] Care Team Providers Care Back Gray Cloth Washer Name Role Phone Unavailable Primary Care Provider Unavailabl e Allergies No known active allergies Medications dicyclomine (Bentyl) 20 MG tablet Take 1 [...] 10 mg by mouth at bedtime. Active buprenorphine- naloxone (Suboxone) 2-0.5 MG per sublingual filmIndication s:Uncomplicate d opioid dependence (CMS/HCC) (HCC) Place 1 Film under the tongue 2 times daily for 28 days. 56 Film 12/23/19 25 025 Active buprenorphine- naloxone (Suboxone) 2-0.5 MG per sublingual filmIndication s:Uncomplicate d opioid dependence (CMS/HCC) (HCC) Place 1 Film under the tongue 2 times daily for 28 days. 56 Film 11/25/19 25 025 Discontinued(Re order (will not trigger notification to Pharmacy)) Active Problems Problem Noted Date Diagnosed Date Opioid dependence 10/29/2023 Assessment & Plan (12/01/2024 3:42 AM EDT): - stage of change: early remission / maintenance - Utox review: pos opi on 10/29/23 intake; pos bup and bzd since then. 09/08/24 Positive cocaine, patient stated he used once. - Overdose risk: intermediate to high. He uses alone, takes BZD, has PTSD, and age. - Continue current recovery support. 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 - Continue current recovery effort. - Reviewed harm reduction and overdose prevention. Assessment & Plan (11/03/2024 5:53 AM EDT): - stage of change: early remission / maintenance - Utox review: pos opi on 10/29/23 intake; pos bup and bzd since then - Overdose risk: intermediate to high. He uses alone, takes BZD, has PTSD, and age. - Continue current recovery support. 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 - Continue current recovery effort. - Reviewed harm reduction and overdose prevention. Assessment & Plan (07/14/2024 5:44 AM EDT): - stage of change: early remission / maintenance - Utox review: pos opi on 10/29/23 intake; pos bup and bzd since then - Overdose risk: intermediate to high. He uses alone, takes BZD, has PTSD, and age. - Continue current recovery support. 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 - Continue current recovery effort. - Reviewed harm reduction and overdose prevention. Assessment & Plan (05/18/2024 5:03 PM EDT): - stage of change: early remission / maintenance - Utox review: pos opi on 10/29/23 intake; pos bup and bzd since then - Overdose risk: intermediate to high. He uses alone, takes BZD, has PTSD, and age. - Continue current recovery support. 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 - Continue current recovery effort. - Reviewed harm reduction and overdose prevention. Assessment & Plan (04/07/2024 5:13 AM EST): - stage of change: early remission / maintenance - Utox review: pos opi on 10/29/23 intake; pos bup and bzd since then - Overdose risk: intermediate to high. He uses alone, takes BZD, has PTSD, and age. - Continue current recovery support. 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 - Continue current recovery effort. - [...] - Continue current recovery support. 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 - Continue current recovery effort. - Reviewed harm reduction and overdose prevention. - Induction on 10/29/23. Started with high dose, and developed adverse reaction. [place] better with lower dose, 4/1 mg daily. Assessment & Plan (02/11/2024 10:41 AM EST): - stage of change: action -> early remission / maintenance - Utox review: pos opi on 10/29/23 intake; pos bup and bzd since then - Overdose risk: intermediate to high. He uses alone, takes BZD, has PTSD, and age. - Continue current recovery support. 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 - Continue current recovery effort. - Reviewed harm reduction and overdose prevention. - Induction on 10/29/23. Started with high dose, and developed adverse reaction. [place] better with lower dose, 4/1 mg daily. Assessment & Plan (01/07/2024 5:13 AM EDT): - stage of change: action -> early remission / maintenance - Utox review: pos opi on 10/29/23 intake; pos bup and bzd since then - Overdose risk: intermediate to high. He uses alone, takes BZD, has PTSD, and age. - Continue current recovery support. 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 - Continue current recovery effort. - Reviewed harm reduction and overdose prevention. - Induction on 10/29/23. Started with high dose, and developed adverse reaction. [place] better with lower dose, 4/1 mg daily. Assessment & Plan (12/17/2023 11:24 AM EDT): - stage of change: action -> early remission / maintenance - Utox review: pos opi on 10/29/23 intake; pos bup and bzd since then - Overdose risk: intermediate to high. He uses alone, takes BZD, has PTSD, and age. - Continue current recovery support. Met with Joe quarles. - Continue current recovery effort. - Reviewed harm reduction and overdose prevention. - Induction on 10/29/23. Started with high dose, and developed adverse reaction. [place] better with lower dose, 4/1 mg daily. Assessment & Plan (11/26/2023 5:59 AM EDT): - stage of change: action - Utox review: - Overdose risk: intermediate to high. He uses alone, takes BZD, has PTSD, and age. - Continue current recovery support. Met with Joe quarles. - Continue current recovery effort. - Reviewed harm reduction and overdose prevention. - Induction on 10/29/23. Started with high dose, and developed adverse reaction. [place] better with lower dose, 4/1 mg daily. Assessment & Plan (10/29/2023 1:11 PM EDT): - stage of change: action - Utox review: - Overdose risk: intermediate to high. He uses alone, takes BZD, has PTSD, and age. - Continue current recovery support. Met with Joe quarles, today. - Continue current recovery effort. - [...] Encounters Date Type Department Care Team Description 12/22/2024 Refill [facility] [address] [place] [phone] Dennis Del Cid RN Uncomplicated opioid dependence (CMS/HCC) (HCC) 12/01/2024 9:45 AM EDT Office Visit [facility] [address] [place] [phone] Viky Galvan MD Uncomplicated opioid dependence (CMS/HCC) (Primary Dx); Encounter for immunization 12/01/2024 Travel 11/24/2024 Refill [facility] [address] [place] [phone] Dennis Del Cid RN Uncomplicated opioid dependence (CMS/HCC) 11/03/2024 10:30 AM EDT Clinical Support [facility] [address] [place] [address] [phone] Dennis Del Cid RN Uncomplicated opioid dependence (CMS/HCC) (Primary Dx) 11/03/2024 Travel 10/27/2024 Refill [facility] [address] [place] [address] [phone] Dennis Del Cid RN Uncomplicated opioid dependence (CMS/HCC) 10/11/2024 Telephone [facility] [address] [place] [address] [phone] Dennis Del Cid, YAEL OBAT Communication 10/06/2024 10:00 AM EDT Clinical Support [facility] [address] [place] [phone] Corina Muller RN Uncomplicated opioid dependence (CMS/HCC) (Primary Dx) 10/06/2024 Travel 09/29/2024 Refill [facility] [address] [place] [phone] Dennis Del Cid RN Uncomplicated opioid dependence (CMS/HCC) from Last 3 Months Immunizations Immunization Administration Dates Next Due Influenza, High Dose Seasonal, Preservative Free 12/01/2024 Social History Tobacco Use Types Packs/Day Years [...] Orientation Straight 10/29/2023 10 :50 AM EDT Last Filed Vital Signs Vital Sign Reading Time Taken Comments Blood Pressure - - Pulse - - Temperature - - Respiratory Rate - - Oxygen Saturation - - Inhaled Oxygen Concentration - - Weight 80 kg (176 lb 6.4 oz) 06/16/2024 10:04 AM EDT Height - - Body Mass Index - - Plan of Treatment Upcoming Encounters Date Type Department Care Team (Late st Contact Info) Description 12/29/2024 10:15 AM EDT Office Visit [facility] [address] [place] [address] [phone] Viky Galvan MD [address] [place] [address] [phone] 01/26/2025 9:45 AM EST Office Visit [address] [phone] Viky Galvan MD [address] [place] [address] [phone] Health Maintenance Due Date Last Done Comments CT Colonography 1950 Colonoscopy 1950 FIT 1950 Lipid Panel 1950 Sigmoidoscopy 1950 Zoster Vaccines (1 of 2) 06/05/2001 DTaP/Tdap/Td Vaccines (1 - Tdap) 11/10/2020 11/09/2020 FOBT 12/29/2022 12/29/2021, 09/17/2018 COVID-19 Vaccine ( season) 2024 11/15/2023, 08/11/2022, 12/03/2021, Additional history exists Colorectal Cancer Screening 12/29/2024 FIT DNA/Cologuard 12/29/2024 12/29/2021, 09/17/2018 Alcohol/Substance Use Screening 04/28/2025 04/28/2024 Depression Screening 04/28/2025 04/28/2024, 04/28/19 25 SDOH Screening 04/28/2025 04/28/2024 Tobacco Screening 04/28/2025 04/28/2024 RSV Patients and Patients Aged 60 years or older (1 - 1-dose 75+ series) 06/05/2026 Pneumococcal Vaccine: 50+ Years Completed 03/12/2018, 12/01/2014 Hepatitis C Screening Completed 11/06/2023 Influenza Vaccine Completed 12/01/2024, , 12/10/2022, Additional history exists HIB Vaccines Aged Out [...] patient's age to complete this topic Meningococcal B Vaccine Aged Out No l onger eligible based on patient's age to complete [...] improve ability to perform daily activities General On track( 025 11:15 AM EDT) Dennis Suarez, operating system programmer Procedure Name Priority Date/Time Associated Diagnosis Comments POCT AJAY-14 URINE DRUG SCREEN Routine 11/03/2024 11:05 AM EDT Uncomplicated opioid dependence (CMS/HCC) DRUG MONITOR, COCAINE METAB, QN, URINE Routine 10/06/2024 10:54 AM EDT POCT AJAY-14 URINE DRUG SCREEN Routine 10/06/2024 10:42 AM EDT Uncomplicated opioid dependence (CMS/HCC) HEPATITIS C AB W/REFL TO HCV RNA, QN, PCR Routine 11/06/2023 12:27 PM EDT from Last 3 Months or Most Recently Relevant to Health Maintenance Results * (ABNORMAL) POCT AJAY-14 Urine Drug Screen (11/03/2024 11:05 AM EDT) Only the most recent of2 resultswithin the time period is included. THC Negative Negative Cocaine Screen, Urine Negative Negative Opiate Screen, Urine Negative Negative Methamphetamine Screen Urine Negative Negative Amphetamine Screen, Urine Negative Negative Benzodiazepines Screen, Urine Positive(A) Negative Barbiturate Screen, Urine Negative Negative Methadone Screen, Urine Negative Negative Buprenophine Screen, Urine Positive(A) Negative TCA, Urine Negative Negative MDMA Urine Negative Negative ng/mL Oxycodone Screen, Urine Negative Negative Phencyclidine (PCP), Urine Negative Negative Propoxyphene, Urine Negative Negative Fentanyl, Urine Negative Negative Urine Urine specimen obtained by clean catch procedure / Unknown 11/03/2024 11:05 AM EDT Viky Galvan MD POINT OF CARE TEST ENTER/EDIT OR DERABLES Final Result * Drug Monitoring, Cocaine Metabolite, Quantitative, Urine (10/06/2024 10:54 AM EDT) Benzoylecgonine [address] [facility] Comment:[id number] ng/mL Cocaine Comments SEE NOTE [facility] Comment:NOTES AND COMMENTSTh is drug testing is for medical treatment only. Analysiswas performed as non-forensic testing and these resultsshould be used only by healthcare providers torender diagnosis or treatment, or to monitor progress ofmedical conditions.Cocaine Notes:Benzoylecgonine detected is consistent with the use of thedrug Cocaine.LDT Notes:Confirmation tests were developed and their analyticalperformance characteristics have been determined by [employer]. It has not been cleared orapproved by the FDA. This assay has been validated pursuantto the CLIA regulations and is used for clinical purposes.Healthcare Providers needing Interpretation assistance,please contact us at [phone] ( ) M-F,8am to 10pm ESTPERFORMING SITE:[facility] [employer] [facility], [address] [place] [phone] Bill Poster Installer: SHEELA CLEARY MD, CLIA:[id number] 10/06/2024 10:5 4 AM EDT 10/06/2024 1:14 PM EDT us Viky Galvan MD LAB URINE ORDERABLES Final Resul t Performing Organization Address [facility] Co de Phone Number [facility] [address] [place] [address] [phone] * Hepatitis C Antibody with Reflex to HCV, RNA, Quantitative, Real-Time PCR (11/06/2023 12:27 PM EDT) Hepatitis C Antibody Nonreactive Nonreactive [facility] Comment:Antibodies to HCV no t detected; does not exclude early acuteHCV infection. 11/06/2023 12:2 7 PM EDT 11/06/2023 1:12 PM EDT Viky Galvan MD LAB BLOOD ORDERABLES Final Resul t Performing Organization Address [facility] Co de Phone Number [facility] [address] [place] [phone] from Last 3 Months or Most Recently Relevant to Health Maintenance Insurance [facility]
--- OUTSIDE RECORDS SUMMARY | 2024-12-27 13:27 | XMS_ITS | Encounter Summary ---
Author Organization [employer] Address [address] [facility] [address] [place] [address] Care Team Providers Care Splunk Dashboard Developer Name Role Phone Unavailable Primary Care Provider Unavailabl e Reason for Visit * Reason Onset Date Comments Med Refill 12/22/2024 Encounter Details Date Type Department Care Team ([facility] st Contact Info) Description 12/22/2024 Refill [facility] [address] [place] [address] Dennis Del Cid, RN [address] [place] [address] Uncomplicated opioid dependence (CMS/HCC) (HCC) Social History Tobacco Use Types Packs/Day Years [...] Description 12/29/2024 10:15 AM EDT Office Visit [facility] [address] [place] [phone] Viky Galvan MD [address] [place] [phone] 01/26/2025 9:45 AM EST Office Visit [address] [phone] Viky Galvan MD [address] [place] [phone] documented as of this encounter Goals Goal Patient Goal Type Associated Problems Recent Progress Patient-Stated? Author Increase coping skills to promote long-term recovery and improve ability to perform daily activities General On track( 025 11:15 AM EDT) No Dennis Del Cid, YAEL documented as of this encounter Visit Diagnoses Diagnosis Uncomplicated opioid dependence (CMS/HCC) (HCC) documented in this encounter Additional Health Concerns Assessment Noted Time PHQ-9 Depression Total Score: 0 04/28/19 25 10:13 AM EST documented as of this encounter
[2024-12-27 14:53] LABS: Hematocrit 44.7 % (42.0-52.0); Hemoglobin 14.4 g/dl (14.0-18.0); Mean Corpuscular HGB Conc 32.2 g/dl (31.0-36.0); Mean Corpuscular Hemoglobin 28.9 pg (27.0-33.0); Mean Corpuscular Volume 89.6 fL (80.0-98.0); NRBC Abs Auto 0.000 X10*3/uL (0.0-0.012); NRBC Pct Auto 0.0 /100WBC (0.0-0.2); Platelet Count 284 X10*3/uL (160-400); Red Blood Count 4.99 X10*6/uL (4.60-5.80); White Blood Count 8.1 X10*3/uL (4.8-10.8)
[2024-12-27 15:07] LABS: Alanine Aminotransferase 22 U/L (0-40); Albumin Level 4.4 g/dL (3.5-5.0); Alkaline Phosphatase 80 U/L (39-117); Anion Gap 12 (12-20); Aspartate Amino Transferase 26 U/L (5-37); Blood Urea Nitrogen 18 mg/dL (9-16); Calcium 9.7 mg/dL (8.4-10.2); Carbon Dioxide 29 mmol/L (22-29); Chloride 104 mmol/L (96-108); Cholesterol 153 mg/dL (<200); Estimated Glomerular Filt Rate > 60; HDL Cholesterol 48 mg/dL (>40); Potassium 4.8 mmol/L (3.3-5.1); Sodium 140 mmol/L (135-145); Total Protein 6.9 g/dL (6.5-8.0); Triglycerides 95 mg/dL (<150)
[2024-12-27 15:17] LABS: Total Hemoglobin (HGBA1C) 3607.6788 umol/L
[2024-12-27 16:19] LABS: Microalbum/Creatinine Ratio Ur 5.9 ug/mg cr (<30)
== END 2024-12-27 11:05 | disposition home or self-care (01) ==
LOC: HO.WFDLDS 11:04
PROVIDERS: Visit Provider Physician Assistant
DX: Z12.5 Encounter for screening for malignant neoplasm of prostate (principal); R73.01 Impaired fasting glucose; I10 Essential (primary) hypertension; E78.2 Mixed hyperlipidemia; F11.20 Opioid dependence, uncomplicated
CPT/HCPCS: 36415; 80053; 80061; 80076; 82043; 82248; 82570; 83036; 84153; 85027

== ENCOUNTER 2025-01-13 12:52 | Outpatient (AMB) | payer BC, SELFPAY ==
[2025-01-13 12:55] VITALS: BP 128/88; PULSE 88; TEMP 36.3; O2SAT 93; BMI 23.9
--- NOTE | 2025-01-13 12:55 | A.OFFPC_ITS ---
Vital Signs 01/13/25 12:55 Height 5 ft 8 in Weight 157 lb 2 oz BMI 23.9 BP 128/88 Blood Pressure Location Rt brachial Position Sitting Pulse 88 Pulse Source Pulse Oximeter Temp 97.3 F Temp Source Temporal Artery Scan Pulse Oximetry (%) 93 Oxygen Delivery Method Room Air Intake Visit Reasons: physical Allergies No Known Allergies Allergy (Verified 01/13/25 13:09) Medication List - Last Reconciled 01/13/25 by Ranjan Dueñas PA-C buprenorphine-naloxone 2-0.5 mg 1 film sublingual BID diclofenac sodium 75 mg PO BID fluorouracil 5% 1 appl topical BID 30 days lisinopril 30 mg PO DAILY 90 days lorazepam 1 mg PO Q8H 30 days paroxetine HCl 20 mg PO QAM simvastatin 20 mg PO BEDTIME triamcinolone acetonide 0.1% 1 appl topical DAILY 30 days zolpidem 10 mg PO BEDTIME 30 days Tobacco use date assessed: 01/13/25 Fall risk assessment: No Falls in past year Last assessed Fall Risk: 01/13/25 Dental Screening Dental Screen Date: 01/13/25 Did you have a dental visit in the last 12 months?: No Did you have a dental problem in the last 6 months where you did not have access to dental care?: No Was dental information given to patient?: Patient has dentist HPI physical HPI Details Peter is a 74-year-old male here today for an annual physical.? Pmhx significant for HTN,? HLD, YIN, opiate dependency. . .. ?HTN: Patient's blood pressure acceptable today in office. Will continue his current dose of lisinopril 30 mg with goal blood pressure to remain below 130/90 ?.. ?Impaired glucose? metabolism: Most recent A1c has 6.4 and fasting blood sugar elevated. He does admit to increase urination over the last 4-5 months. He does admit to dietary indiscretion as of late as he eats 1-2 ice cream cone per day. .. Opiate dependency: Continues on the use of Suboxone with local Suboxone clinic. ?.. 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 ? Takes lorazepam and paxil which he reports is helping his? anxiety tremendously. ?.. ?HLD: Has been complaint with his Statin without? any side effects.? Most recent lipid panel acceptable with LDL below 100 . Vaccines: Up-to-date with tetanus, COVID and flu vaccines. Colorectal cancer screening: Has had a positive Cologuard though has been not w illing to do a colonoscopy. .. Laboratory Tests 11/06/23 12/27/24 12/27/24 12:27 11:10 11:20 Hgb 14.4 Creatinine 1.17 Fasting Glucose 111 H Hemoglobin A1c % 5.8 6.4 H LDL Cholesterol, C alc 86 PSA Screen 0.50 Urine Microalbumin 10.0 PFSH Medical History Arthritis PTSD (post-traumatic stress disorder) White coat syndrome with hypertension Opiate dependence HLD (hyperlipidemia) Anxiety HTN (hypertension) Surgical History S/P cataract surgery History of surgery History of thumb surgery Family History Father No problems noted. Mother No problems noted. Sister In good health Social History Housing: House Alcohol intake: never Patient Tobacco Use Status: Never used Tobacco e-Cigarette/Vaping Use: Never Used Second Hand Smoke Exposure: No service: Yes Current occupational status: retired Cognitive needs: No Hearing needs: No Vision needs: Yes Questionnaire PHQ-9 Over the last 2 weeks, how often have you been bothered by any of the following problems? 1. Little interest or pleasure in doing things: not at all 2. Feeling down, depressed, or hopeless: not at all 3. Trouble falling or staying asleep, or sleeping too much: not at all 4. Feeling tired or having little energy: not at all 5. Poor appetite or overeating: not at all 6. Feeling bad about yourself - or that you are a failure or have let yourself or your family down: not at all 7. Trouble concentrating on things, such as reading the newspaper or watching television: not at all 8. Moving or speaking so slowly that other people could have noticed. Or the opposite - being so fidgety or restless that you have been moving around a lot more than usual: not at all 9. Thoughts that you would be better off or of hurting yourself in some way: not at all Total score: 0 Depression Screening Interpretation: Negative Depression Screening Done: Yes 13969 - PHQ-9 Billing: Patient declined-do not bill Source: Developed by Drs. Jc Myles, Alyson Savage, Teodoro Hummel and colleagues, with an educational aris from [employer] Thrive Questionnaire Date Thrive assessed: 12/24/24 I am a: Patient What is your living situation today?: I have a steady place to live Within the past 12 months, did the food you bought not last and you didn't have the money to get more?: Never true Within the past 12 months, did you worry whether your food would run out before you got money to buy more?: Never true Do you have trouble paying for medicines?: No Do you have trouble getting transportation to medical appointments?: No Do you have trouble paying your heating and electricity bill?: No Do you have trouble taking care of your child, family member or friend?: No Do you have trouble with day-to-day activities such as bathing, preparing meals, shopping, managing finances, etc.?: No Are you currently unemployed and looking for a job?: No Are you interested in more education?: No Please select the resources that you would like help with: None Currently or been in a relationship where the following occur: No concerns reported THRIVE Score: 0 AUDIT C Alcohol Use Questionnaire (AUDIT-C) 1. How often do you have a drink containing alcohol?: Never 3. How often do you have six or more drinks on one occasion?: Never Total Score: 0 YIN-7 AMB Questionnaire YIN-7 Date YIN - 7 assessed: 04/26/24 Feeling nervous, anxious, or on edge: 0 = Not at all Not being able to stop or control worryin = Not at all Worrying too much about different things: 0 = Not at all Trouble relaxin = Not at all Being so restless that it is hard to sit still: 0 = Not at all Becoming easily annoyed or irritable: 0 = Not at all Feeling afraid as if something awful might happen: 0 = Not at all Total YIN-7 score (0-4 normal; 5-9 mild; 10-14 moderate; 15-21 severe): 0 Source: Developed by Drs. Jc Myles, Alyson Savage, Teodoro Hummel and colleagues, with an educational aris from [employer]. YIN-7 Assessment Billing YIN-7 Assessment Tool: YIN-7 Assessment 21182 Review of Systems Const Denies body aches, Denies chills, Denies excessive sweating, Denies fatigue, Denies fever(s) and Denies headache(s) Eyes Denies blurry vision ENT Denies dysphagia, Denies vertigo, Denies dizziness, Denies headache(s), Denies hearing loss and Denies tinnitus Card Denies chest pain, Denies chest pain with activity, Denies syncope, Denies irregular heart rhythm and Denies dyspnea Resp Denies chest congestion, Denies cough, Denies hemoptysis, Denies dyspnea and Denies wheezing GI Denies abdominal pain, Denies melena, Denies hematochezia, Denies coffee ground emesis, Denies dysphagia, Denies diarrhea, Denies nausea and Denies vomiting Denies difficulty urinating, Denies dysuria, Denies urinary frequency, Denies urinary hesitancy and Denies urinary urgency Musc Denies arthralgias, Denies limited range of motion, Denies muscle cramps and Denies muscle weakness Skin/Breast Denies rash and Denies skin ulcer Neuro Denies Abnormal speech present, Denies confusion, Denies vertigo, Denies dizziness, Denies syncope, Denies headache(s), Denies memory loss and Denies seizure-like activity Psych Denies anxiety, Denies confusion, Denies depression, Denies memory loss, Denies panic attacks and Denies paranoia Endo Denies excessive sweating, Denies fatigue, Denies flushing, Denies polydipsia and Denies polyuria Aller/Immun Denies wheezing Physical exam (Primary Care) Vital Signs: Last Vital Signs Temp 97.3 F 01/13/25 12:55 Pulse 88 01/13/25 12:55 BP 128/88 01/13/25 12:55 Pulse Ox 93 01/13/25 12:55 Oxygen Delivery Method Room Air 01/13/25 12:55 BMI result Body Mass Index 23.9 Tobacco/Smoking Status: Tobacco use Status Tobacco use date assessed 01/13/25 01/13/25 12:59 Patient Tobacco Use Status Never used Tobacco 01/13/25 12:59 e-Cigarette/Vaping Use Never Used 01/13/25 12:59 PHQ-9: PHQ-9 Score PHQ-9: Total score 0 01/13/25 12:59 Depression Screening Interpretation: Negative Thrive Assessment: Date of Thrive Assessment Date Thrive assessed 12/24/24 01/13/25 12:59 Currently or been in a relationship where the following occur: No concerns reported Const General: cooperative, comfortable, no acute distress, alert and awake; No c onfusion Orientation/consciousness: oriented to person, oriented to place, patient oriented x3 and No confusion HENMT Head: Yes normocephalic Ears: external ears normal and TM's normal bilaterally Face and sinus: No sinus tenderness Mouth: Normal oral and palatal mucosa present and tongue normal Teeth and gingiva: dentition normal and gingiva normal Throat: Yes posterior oropharynx normal, Yes tonsils normal and Yes uvula midline Eyes Conjunctivae: conjunctivae normal Sclerae: sclerae normal Pupils: Equal, round and reactive pupils present EOM: EOMs intact bilaterally Direct Ophthalmoscopy: No no photophobia Neck Neck: Yes no lymphadenopathy, No tender and Yes no JVD Thyroid: Thyroid normal Carotids: no bruits Chest Chest palpation & inspection: no tenderness Resp Effort & Inspection: normal respiratory effort, no audible wheezes, not labored and no stridor Auscultation: no crackles, no rales, no rhonchi and no wheezes Cardio Jugular venous distension: no JVD Rate: regular rate, not bradycardic and not tachycardic Rhythm: regular rhythm Bruits: no carotid bruits Peripheral pulses: Peripheral pulses 2+ throughout GI Inspection: Yes normal to inspection, No abdominal wall ecchymosis and No visible herniation Palpation (GI): Soft to palpation, nontender, no guarding, not rigid and No hepatosplenomegaly present Auscultation: normoactive bowel sounds General: Yes no CVA tenderness Back/Spine/Pelvis Back: no CVA tenderness and No back tenderness Cervical Spine: cervical ROM normal Thoracic/Lumbar Spine: thoracic and lumbar spine normal to inspection, straight leg raise negative bilaterally, No thoraco-lumbar ROM limited and No lumbar spinal tenderness Skin Lesions: no lesions Rashes: no rashes Wounds: no wounds Neuro General: oriented to person, oriented to place, patient oriented x3, CN's II-XI intact bilaterally and No confusion Cranial nerves: Yes Equal, round and reactive pupils present and Yes Normal accommodation reflex present Cognition (Neuro): normal cognition Speech: No Abnormal speech present Gait exam (Neuro): Normal gait present Motor exam (neuro): 5/5 motor strength present throughout Extrem Right upper extremity: full ROM; no cyanosis Left upper extremity: full ROM; no cyanosis Right lower extremity: no edema Left lower extremity: no edema Psych Appearance: grossly normal Mental Status: mental status grossly normal Affect: normal affect Attitude: cooperative Thought process: Normal thought process present Coding Level of Care Code Est Pt Prev Care >65y(19803) Diagnoses Annual physical exam Z00.00 Primary hypertension I10 Hypertension type: primary hypertension Mixed hyperlipidemia E78.2 Hyperlipidemia type: mixed hyperlipidemia Impaired fasting glucose R73.01 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 Substance use status: in remission Positive colorectal cancer screening using Cologuard test R19.5 Additional Codes YIN-7 Assessment Billing - YIN-7 Assessment Tool: YIN-7 Assessment 81536 ([id number]) Assessment & Plan Assessment & Plan (1) Annual physical exam: Code(s): Z00.00 - Encounter for general adult medical examination without abnormal findings Category: Medical Plan: As per HPI (2) HTN (hypertension): Code(s): I10 - Essential (primary) hypertension Category: Medical Qualifiers: Hypertension type: primary hypertension Qualified Code(s): I10 - Essential (primary) hypertension Plan: Patient's blood pressure on the low side today in office. Though on right arm seems to be slightly elevated. We did discuss perhaps doing a arterial ultrasound of the upper extremity evaluate for stenosis though patient declines. For now will continue on lisinopril 30 mg (3) HLD (hyperlipidemia): Code(s): E78.5 - Hyperlipidemia, unspecified Category: Medical Qualifiers: Hyperlipidemia type: mixed hyperlipidemia Qualified Code(s): E78.2 - Mixed hyperlipidemia Plan: Patient's most recent the panels have been stable. He continues with simvastatin 20 mg without any side effect. Goal LDL is to remain below 130 (4) Impaired fasting glucose: Code(s): R73.01 - Impaired fasting glucose Category: Medical Plan: The plan for the patient's prediabetes is to initiate dietary and lifestyle modifications. This will involve eliminating nightly ice cream consumption and reducing the intake of other carbohydrates like white flour, bread, and pasta. We will recheck fasting labs, including an A1c and fasting blood sugar, in approximately four months to monitor progress. If the blood sugar remains elevated at that time, we will consider initiating medication such as metformin. Goal A1c is to be below 6.0 (5) Opiate dependence: Code(s): F11.20 - Opioid dependence, uncomplicated Category: Medical Qualifiers: Substance use status: in remission Qualified Code(s): F11.21 - Opioid dependence, in remission Plan: Followed by a Suboxone clinic and is still getting stabilized on a regular dose of Suboxone (6) Positive colorectal cancer screening using Cologuard test: Code(s): R19.5 - Other fecal abnormalities Category: Medical Plan: Peter is aware of his positive Cologuard test. He was still trying to hold off on a colonoscopy she has been trying to stabilize medication. He will call for referral to gastroenterology for colonoscopy. Orders: Orders Comprehensive [facility]. Panel Fast Today I10 - Essential (primary) hypertension Hemoglobin A1c Today R73.01 - Impaired fasting glucose
--- OUTSIDE RECORDS SUMMARY | 2025-01-13 15:52 | XMS_ITS | Clinical Summary ---
Author Organization [employer] Address [address] [place] [address] Care Team Providers Care Chief Recordist Name Role Phone Unavailable Primary Care Provider [...] Active Problems Problem Noted Date Diagnosed Date Cocaine use disorder ([facility]) 12/29/2024 Assessment & Plan (12/29/2024 11:50 AM EDT): - patient states he is not using every day - reviewed harm reduction Opioid dependence 10/29/2023 Assessment & Plan (12/29/2024 11:45 AM EDT): - stage of change: early remission / maintenance - Utox review: pos opi on 10/29/23 intake; pos bup and bzd since then. Since September 2024, he has positive cocaine occasionally, which is consistent with his story - Overdose risk: intermediate to high. He uses alone, takes BZD, has PTSD, and age. - Continue current recovery support. Met with health care coachJoe. - Continue current recovery effort. - Reviewed harm reduction and overdose prevention. Assessment & Plan (12/01/2024 3:42 AM EDT): - stage of change: early remission / maintenance - Utox review: pos opi on 10/29/23 intake; pos bup and bzd since then. 09/08/24 Positive cocaine, patient stated he used once. - Overdose risk: intermediate to high. He uses alone, takes BZD, has PTSD, and age. - Continue current recovery support. Met with health care coach, Al. - Continue current recovery effort. [...] - Continue current recovery support. Met with health care coach, Al. - Continue current recovery effort. [...] - Continue current recovery support. Met with health care coach, Al. - Continue current recovery effort. [...] - Continue current recovery support. Met with health care coach, Al. - Continue current recovery effort. [...] - Continue current recovery support. Met with health care coach, Al. - Continue current recovery effort. [...] - Continue current recovery support. Met with health care coach, Al. - Continue current recovery effort. - Reviewed harm reduction and overdose prevention. - Induction on 10/29/23. Started with high dose, and developed adverse reaction. Monson better with lower dose, 4/1 mg daily. Assessment & Plan (02/11/2024 10:41 AM EST): - stage of change: action -> early remission / maintenance - Utox review: pos opi on 10/29/23 intake; pos bup and bzd since then - Overdose risk: intermediate to high. He uses alone, takes BZD, has PTSD, and age. - Continue current recovery support. Met with health care coach, Al. - Continue current recovery effort. - Reviewed harm reduction and overdose prevention. - Induction on 10/29/23. Started with high dose, and developed adverse reaction. Monson better with lower dose, 4/1 mg daily. Assessment & Plan (01/07/2024 5:13 AM EDT): - stage of change: action -> early remission / maintenance - Utox review: pos opi on 10/29/23 intake; pos bup and bzd since then - Overdose risk: intermediate to high. He uses alone, takes BZD, has PTSD, and age. - Continue current recovery support. Met with health care coach, Al. - Continue current recovery effort. - Reviewed harm reduction and overdose prevention. - Induction on 10/29/23. Started with high dose, and developed adverse reaction. Monson better with lower dose, 4/1 mg daily. Assessment & Plan (12/17/2023 11:24 AM EDT): - stage of change: action -> early remission / maintenance - Utox review: pos opi on 10/29/23 intake; pos bup and bzd since then - Overdose risk: intermediate to high. He uses alone, takes BZD, has PTSD, and age. - Continue current recovery support. Met with health care coach, Al. - Continue current recovery effort. - Reviewed harm reduction and overdose prevention. - Induction on 10/29/23. Started with high dose, and developed adverse reaction. Monson better with lower dose, 4/1 mg daily. Assessment & Plan (11/26/2023 5:59 AM EDT): - stage of change: action - Utox review: - Overdose risk: intermediate to high. He uses alone, takes BZD, has PTSD, and age. - Continue current recovery support. Met with health care coach, Al. - Continue current recovery effort. - Reviewed harm reduction and overdose prevention. - Induction on 10/29/23. Started with high dose, and developed adverse reaction. Monson better with lower dose, 4/1 mg daily. Assessment & Plan (10/29/2023 1:11 PM EDT): - stage of change: action - Utox review: - Overdose risk: intermediate to high. He uses alone, takes BZD, has PTSD, and age. - Continue current recovery support. Met with health care coachJoe, today. - Continue current recovery effort. [...] - continue simvastatin as prescribed by PCP Resolved Problems Problem Noted Date Diagnosed Date Resolved Date Cocaine use 12/29/2024 12/29/2024 Encounters Date Type Department Care Team Description 12/29/2024 10:15 AM EDT Office Visit [facility] [address] [place] [phone] Viky Galvan MD Uncomplicated opioid dependence (CMS/HCC) (HCC) (Primary Dx); Cocaine use; Cocaine use disorder (CMS/HCC) (HCC) 12/29/2024 Travel 12/27/2024 Orders Only GENERIC EXTERNAL DATA DEPARTMENT Provider, Generic External Data 12/22/2024 Refill [facility] [address] [place] [address] Dennis Del Cid RN Uncomplicated opioid dependence (CMS/HCC) (HCC) 12/01/2024 9:45 AM EDT Office Visit [facility] [address] [place] [address] Viky Galvan MD Uncomplicated opioid dependence (CMS/HCC) (Primary Dx); Encounter for immunization 12/01/2024 Travel 11/24/2024 Refill [facility] [address] [place] [address] Dennis Del Cid RN Uncomplicated opioid dependence (CMS/HCC) 11/03/2024 10:30 AM EDT Clinical Support [facility] [address] [place] [address] Dennis Del Cid RN Uncomplicated opioid dependence (CMS/HCC) (Primary Dx) 11/03/2024 Travel 10/27/2024 Refill [facility] [address] [place] [address] Dennis Del Cid RN Uncomplicated opioid dependence [...] Care Team (Late st Contact Info) Description 01/26/2025 9:45 AM EST Office Visit [facility] [address] [place], [place] [phone] Viky Galvan MD [address] [place] [address] Health Maintenance Due Date Last Done Comments CT Colonography 1950 Colonoscopy 1950 FIT 1950 Sigmoidoscopy 1950 Zoster Vaccines (1 of 2) 06/05/2001 DTaP/Tdap/Td Vaccines (1 - Tdap) 11/10/2020 11/09/2020 FOBT 12/29/2022 12/29/2021, 09/17/2018 COVID-19 Vaccine ( season) 2024 11/15/2023, 08/11/2022, 12/03/2021, Additional history exists Colorectal Cancer Screening 12/29/2024 FIT DNA/Cologuard 12/29/2024 12/29/2021, 09/17/2018 Alcohol/Substance Use Screening 04/28/2025 04/28/2024 Depression Screening 04/28/2025 04/28/2024, 04/28/19 SDOH Screening 04/28/2025 04/28/2024 Tobacco Screening 04/28/2025 04/28/2024 Diabetes: Hemoglobin A1C 12/27/2025 12/27/2024, 0811/2023 RSV Patients and Patients Aged 60 years or older (1 - 1-dose 75+ series) 06/05/2026 Lipid Panel 12/27/2029 12/27/2024 Pneumococcal Vaccine: 50+ Years Completed 03/12/2018, 12/01/2014 [...] 11:15 AM EDT) No Dennis Del Cid, agile scrum coach Procedure Name Priority Date/Time Associated Diagnosis Comments POCT AJAY-14 URINE DRUG SCREEN Routine 12/29/2024 10:16 AM EDT Uncomplicated opioid dependence (CMS/HCC) (HCC) ALBUMIN, RANDOM URINE W/CREATININE Routine 12/27/2024 11:20 AM EDT PSA, SCREEN Routine 12/27/2024 11:10 AM EDT HEMOGLOBIN A1C Routine 12/27/2024 11:10 AM EDT LIPID PANEL, STANDARD Routine 12/27/2024 11:10 AM EDT HEPATIC FUNCTION PANEL Routine 11:10 AM EDT COMPREHENSIVE METABOLIC PANEL, FASTING Routine 12/27/2024 11:10 AM EDT CBC Routine 12/27/2024 11:10 AM EDT POCT AJAY-14 URINE DRUG SCREEN Routine 11/03/2024 11:05 AM EDT Uncomplicated opioid dependence (CMS/HCC) HEPATITIS C AB W/REFL TO HCV RNA, QN, PCR Routine 11/06/2023 12:27 PM EDT from Last 3 Months or Most Recently Relevant to Health Maintenance Results * (ABNORMAL) POCT AJAY-14 Urine Drug Screen (12/29/2024 10:16 AM EDT) Only the most recent of2 resultswithin the time period is included. THC Negative Negative Cocaine Screen, Urine Positive(A) Negative Opiate Screen, Urine Negative Negative Methamphetamine Screen Urine Negative Negative Amphetamine Screen, Urine Negative Negative Benzodiazepines Screen, Urine Positive(A) Negative Barbiturate Screen, Urine Negative Negative Methadone Screen, Urine Negative Negative Buprenophine Screen, Urine Positive(A) Negative TCA, Urine Negative Negative MDMA Urine Negative Negative ng/mL Oxycodone Screen, Urine Negative Negative Phencyclidine (PCP), Urine Negative Negative Fentanyl, Urine Negative Negative Urine Urine specimen obtained by clean catch procedure / Unknown 12/29/2024 10:16 AM EDT Viky Galvan MD POINT OF CARE TEST ENTER/EDIT OR DERABLES Final Result * Albumin, Random Urine W/Creatinine (12/27/2024 11:20 AM EDT) Creatinine, Urine 168.19 mg/dL [facility] Microalbumin Urine 10.0 mg/L [facility] Microalbum Creatinine Ratio Ur 5.9 <30 ug/mg cr [facility] Comment:Albumin/Creatinine R atio Reference Ranges: Normal: < 30 ug/mg creatinine Microalbuminuria: 30 - 300 ug/mg creatinineClinical Albuminuria: > 300 ug/mg creatinine 12/27/2024 11:2 0 AM EDT 12/27/2024 2:23 PM EDT us Generic External Data Provider LAB URINE ORDERAB LES Final Result [facility] [address] [place] [phone] * (ABNORMAL) Comprehensive Metabolic Panel, Fasting (12/27/2024 11:10 AM EDT) Sodium 140 135 - 145 mmol/L [facility] Potassium 4.8 3.3 - 5.1 mmol/L [facility] Chloride 104 96 - 108 mmol/L [facility] Carbon Dioxide 29 22 - 29 mmol/L [facility] Anion Gap 12 12 - 20 [facility] Urea Nitrogen (BUN) 18(H) 9 - 16 mg/dL [facility] Creatinine, Serum 1.17 0.5 - 1.4 mg/dL [facility] Estimated Glomerular Filt Rate >60 [facility] Comment:Chronic Kidney Disea se: Estimated GFR < 60 mL/min/1.92j3Degxxl Kidney Disease: Estimated GFR < 15 mL/min/1.73m2 Glucose Fasting 111(H) 60 - 99 mg/dL [facility] Comment:A fasting glucose fr om 100-125 mg/dl is considered impaired(pre-diabetes). Calcium 9.7 8.4 - 10.2 mg/dL [facility] Bilirubin, Total 0.3 0.0 - 1.0 mg/dL [facility] Aspartate Amino Transferase 26 5 - 37 U/L [facility] Alanine Aminotransferase 22 0 - 40 U/L [facility] Total Protein 6.9 6.5 - 8.0 g/dL [facility] Albumin Level 4.4 3.5 - 5.0 g/dL [facility] Alkaline Phosphatase 80 39 - 117 U/L [facility] 12/27/2024 11:1 0 AM EDT 12/27/2024 2:33 PM EDT Generic External Data Provider LAB BLOOD ORDERAB LES Final Result Performing Organization Address City/[facility]/ZIP Co de Phone Number [facility] [address] [place] [phone] * PSA, Screen (12/27/2024 11:10 AM EDT) PSA, Total 0.50 <0.05 - 4.0 ng/mL [facility] Comment:PSA methodology: Odessa Rashid i ChemiluminescentMicroparticle Immunoassay (CMIA) 12/27/2024 11:1 0 AM EDT 12/27/2024 2:33 PM EDT Generic External Data Provider LAB BLOOD ORDERAB LES Final Result Performing Organization Address City/[facility]/ZIP Co de Phone Number [facility] [address] [place] [phone] * CBC (12/27/2024 11:10 AM EDT) White Blood Count 8.1 4.8 - 10.8 X10*3/uL [facility] Red Blood Count 4.99 4.60 - 5.80 X10*6/uL [facility] Hemoglobin 14.4 14.0 - 18.0 g/dl [facility] Hematocrit 44.7 42.0 - 52.0 % [facility] Mean Corpuscular Volume 89.6 80.0 - 98.0 fL [facility] Mean Corpuscular Hemoglobin 28.9 27.0 - 33.0 pg [facility] Mean Corpuscular HGB Conc 32.2 31.0 - 36.0 g/dl [facility] Red Cell Distribution Width 13.4 11.0 - 16.0 % [facility] Platelet Count 284 160 - 400 X10*3/uL [facility] Mean Platelet Volume 10.9 9.4 - 12.4 fL [facility] NRBC Pct Auto 0.0 0.0 - 0.2 /100WBC [facility] NRBC Abs Auto 0.000 0.0 - 0.012 X10*3/uL [facility] 12/27/2024 11:1 0 AM EDT 12/27/2024 2:33 PM EDT us Generic External Data Provider LAB BLOOD ORDERAB LES Final Result [facility] [address] [place] [phone] * (ABNORMAL) Hemoglobin A1c (12/27/2024 11:10 AM EDT) Hemoglobin A1c 6.4(H) <6.0 % [facility] Comment:Hemoglobin A1C Refer ence Range Adults: 4.8 - 6.0 % Non diabetic: < 6.0 % Goal: < 7.0 %Additional Action Suggested: > 8.0 %Note: Hemoglobin A1c results are invalid for patients with abnormal amounts of HbF. Blood transfusions may impact the HbA1c concentration in the patient sample. Estimated Average Glucose 137 mg/dL [facility] Comment:eAG = Estimated ave rage glucose which is %A1C expressed asaverage glucose, using the formula of the S4H-YbwtaulCazmiei Glucose study (ADAG), Diabetes Care, Vol.31,#8,Oct. 2007 12/27/2024 11:1 0 AM EDT 12/27/2024 2:33 PM EDT us Generic External Data Provider LAB BLOOD ORDERAB LES Final Result Performing Organization Address City/[facility]/ZIP Co de Phone Number [facility] [address] [place] [phone] * Hepatic Function Panel (12/27/2024 11:10 AM EDT) Bilirubin, Direct 0.1 0.0 - 0.5 mg/dL [facility] 12/27/2024 11:1 0 AM EDT 12/27/2024 2:33 PM EDT Viky Galvan MD LAB BLOOD ORDERABLES Final Resul t Performing Organization Address [facility] Co de Phone Number [facility] [address] [place] [phone] * Lipid Panel, Standard (12/27/2024 11:10 AM EDT) Triglycerides 95 <150 mg/dL [facility] Comment:Desirable Triglyceri de: less than 150 mg/dLBorderline High Triglyceride 150-199 mg/dLHigh Triglyceride: 200-499 mg/dLVery High Triglyceride: greater than or equal to 5OO mg/dL Cholesterol 153 <200 mg/dL [facility] Comment:Desirable Cholestero l: less than 200 mg/dLBorderline High Cholesterol: 200-239 mg/dLHigh Cholesterol: greater than 239 mg/dL LDL Cholesterol Calculated 86 <100 mg/dL [facility] Comment:Desirable LDL: less than 100 mg/dLNear Optimal/Above Optimal LDL: 110- 129 mg/dLBorderline High LDL: 130-159 mg/dLHigh LDL: 160-189 mg/dLVery High LDL: greater than or equal to 190 mg/dL HDL Cholesterol 48 >40 mg/dL [facility] Comment:Desirable HDL: great er than 40 mg/dL Note: This HDL assay may give artificially low results in patients with liver disease. 12/27/2024 11:1 0 AM EDT 12/27/2024 2:33 PM EDT us Generic External Data Provider LAB BLOOD ORDERAB LES Final Result Performing Organization Address [facility]/ZIP Co de Phone Number [facility] [address] [place] [phone] * Hepatitis C Antibody with Reflex to HCV, RNA, Quantitative, Real-Time PCR (11/06/2023 12:27 PM EDT) Hepatitis C Antibody Nonreactive Nonreactive [facility] Comment:Antibodies to HCV no t detected; does not exclude early acuteHCV infection. 11/06/2023 12:2 7 PM EDT 11/06/2023 1:12 PM EDT us Viky Galvan MD LAB BLOOD ORDERABLES Final Resul t Performing Organization Address [facility] Co de Phone Number [facility] [address] [place] [phone] from Last 3 Months or Most Recently Relevant to Health Maintenance Insurance [facility] H[facility]
== END 2025-01-13 14:20 | disposition home or self-care (01) ==
LOC: HO.HMCH 12:53
PROVIDERS: PCP Physician Assistant; Visit Provider Physician Assistant
DX: Z00.00 Encounter for general adult medical examination without abnormal findings (principal); I10 Essential (primary) hypertension; F11.21 Opioid dependence, in remission; E78.2 Mixed hyperlipidemia; R73.01 Impaired fasting glucose; R19.5 Other fecal abnormalities

== ENCOUNTER → 2025-01-13 12:52 | Outpatient (BNVA) | payer BC, SELFPAY | PROVIDERS: PCP Physician Assistant; Visit Provider Physician Assistant | DX: Z00.00 Encounter for general adult medical examination without abnormal findings (principal); I10 Essential (primary) hypertension; E78.2 Mixed hyperlipidemia; F41.1 Generalized anxiety disorder; R73.01 Impaired fasting glucose; R19.5 Other fecal abnormalities; F11.21 Opioid dependence, in remission | CPT/HCPCS: 96127 ==